=== PATIENT | male | born 1935 | race Caucasian/White ===

== ENCOUNTER 2018-10-27 19:47 | Inpatient (IN) | payer OTHER, MEDICARE ==
[2018-10-27] MEDS ORDERED: NORMAL SALINE 1000 ML 1,000 ML IV ONE (20:29)
--- NOTE | 2018-10-27 20:33 | ER Document Report ---
ED General - General Chief Complaint: Altered Mental Status Stated Complaint: CONFUSED Time Seen by Provider: 10/27/18 20:20 Notes: Patient is an 83-year-old male that comes emergency department with chief complaint of confusion and combativeness. He comes from an assisted living home in [place], he comes by EMS. Patient is unable to tell me any history, he is confused his location and cannot answer any questions appropriately. He can follow directions however. The form he comes with shows that he has a history of dementia, depression/anxiety, CAD, hypertension, and type 2 diabetes. He is listed to be on rosuvastatin, metoprolol, losartan, aspirin. There are no advanced directive forms with him. TRAVEL OUTSIDE OF THE [place] IN LAST 30 DAYS: No - Related Data Allergies/Adverse Reactions: No Known Allergies Allergy (Unverified 10/27/18 23:23) Past Medical History - General Information source: Patient, Transfer Record, Emergency Med Personnel - Social History Smoking Status: Unknown if Ever Smoked Frequency of alcohol use: None Drug Abuse: None Lives with: Family Family History: Reviewed & Not Pertinent - Medical History Medical History: Negative - Past Medical History Cardiac Medical History: Reports: Hx Coronary Artery Disease, Hx Hypercholesterolemia, Hx Hypertension Neurological Medical History: Reports: Hx Cerebrovascular Accident Past Surgical History: Reports: Hx Coronary Artery Bypass Graft Review of Systems - Review of Systems Constitutional: See HPI EENT: No symptoms reported Cardiovascular: No symptoms reported Respiratory: No symptoms reported Gastrointestinal: No symptoms reported Genitourinary: No symptoms reported Male Genitourinary: No symptoms reported Musculoskeletal: No symptoms reported Skin: No symptoms reported Hematologic/Lymphatic: No symptoms reported Neurological/Psychological: See HPI Physical Exam - Vital signs Vitals: Pulse Ox 95 10/27/18 20:03 - Notes Notes: GENERAL: Alert, interacts well. No acute distress. HEAD: Normocephalic, atraumatic. EYES: Pupils equal, round, and reactive to light. Extraocular movements intact. ENT: Oral mucosa moist, tongue midline. Oropharynx unremarkable. Airway patent. NECK: Full range of motion. Supple. Trachea midline. LUNGS: Mildly decreased bilaterally, otherwise unremarkable. No respiratory d istress. HEART: Regular rate and rhythm. No murmur ABDOMEN: Soft, non-tender. Non-distended. Bowel sounds present in all 4 quadrants. GENITOURINARY: Deferred EXTREMITIES: Moves all 4 extremities spontaneously. No edema, normal radial and dorsalis pedis pulses bilaterally. No cyanosis. BACK: no cervical, thoracic, lumbar midline tenderness. No saddle anesthesia, normal distal neurovascular exam. Moves all extremities in full range of motion. NEUROLOGICAL: Cooperative but completely confused. Alert. Normal speech. Cranial nerves II through XII grossly intact. PSYCH: Normal affect, normal mood. SKIN: Warm, dry, normal turgor. No rashes or lesions noted. Course - Re-evaluation Re-evalutation: Patient is mildly hypotensive on initial evaluation, given small amount of IV fluids, work-up will be performed. Patient does not appear toxic. Otherwise his vital signs are unremarkable. Patient is confused but this is reportedly baseline. 10/27/18 21:15 Second EKG without significant change but still shows borderline ST elevation anteriorly and borderline depression laterally. 10/27/18 21:28 Patient has paperwork listing Nettie Limon as his sister and power of client services director with a cell phone contact number at [phone]. I called and was able to speak with her. I expressed concerns about EKG and possible ID, asked if emely lechuga is having an ID if patient would personally wish or if she would wish for patient to undergo an invasive procedure. She states that patient has had 2 CABG procedures in the past, she states that patient and she herself would not want him to undergo any invasive procedures. She states she would want it to be treated medically and to see what happens. She also states that she wishes for patient to be DO NOT RESUSCITATE, she states that she is in between a previous location in [place] in her current location and is unsure where his official paperwork is, however she states that in the event of him coding that she would not want him to have CPR, intubation (placed on a ventilator). She also asked that when we know patient's work-up and disposition that she be called back and informed. CAT scan of the head shows old CVA. Cbc shows leukocytosis without bandemia. Chemistry is unremarkable. Troponin is elevated at 0.428. Chest x-ray consistent with pneumonia. Blood cultures sent. Starting antibiotics. Re-evaluated patient, he is unchanged. Blood pressure has remained unremarkable. Discussed with Dr. Owens. Lovenox started due to elevated troponin. Discussed with Dr. Staton, patient accepted for admission. 10/28/18 05:00 Called and updated sister on patient's details/admission. - Vital Signs Vital signs: Temp Pulse Resp BP Pulse Ox 97.3 F 63 18 104/58 L 96 10/28/18 03:54 10/28/18 03:54 10/28/18 03:54 10/28/18 03:54 10/28/18 04:00 - Laboratory Result Diagrams: 10/27/18 21:11 10/27/18 21:11 Laboratory results interpreted by me: 10/27/18 10/27/18 21:11 21:11 WBC 13.4 H RBC 3.94 L Hgb 11.5 L Hct 34.1 L RDW 14.6 H Seg Neuts % (Manual) 88 H Lymphocytes % (Manual) 7 L Abs Neuts (Manual) 11.8 H Glucose 115 H Total Protein 6.1 L Albumin 2.9 L - EKG Interpretation by Me Additional EKG results interpreted by me: 10/27/18 20:55 EKG shows sinus rhythm at a rate of 78, multiple PVCs are present, in V5 and V6 borderline ST segment depressions anteriorly with borderline inverted T waves, widening and borderline elevation in anterior leads. No comparison EKG is present. Discussed with Dr. Owens, repeat EKG will be performed in 15 minutes. Discharge - Discharge Clinical Impression: NSTEMI (non-ST elevated myocardial infarction) Pneumonia Qualifiers: Pneumonia type: due to unspecified organism Laterality: bilateral Lung location: unspecified part of lung Qualified Code(s): J18.9 - Pneumonia, unspecified organism Dementia Qualifiers: Dementia type: unspecified type Dementia behavioral disturbance: with behavioral disturbance Qualified Code(s): F03.91 - Unspecified dementia with behavioral disturbance Condition: Fair Disposition: ADMITTED INPATIENT Admitting Provider: Brionna (Hospitalist) Unit Admitted: [facility]
[2018-10-27 21:25] LABS: HEMATOCRIT 34.1 % (37.9-51.0); HEMOGLOBIN 11.5 g/dL (13.5-17.0); MEAN CORPUSCULAR HGB CONC 33.6 g/dL (32.0-36.0); MEAN CORPUSCULAR VOLUME 86 fl (80-97); PLATELET COUNT 385 10^3/uL (150-450); RED BLOOD COUNT 3.94 10^6/uL (4.35-5.55); RED CELL DISTRIBUTION WIDTH 14.6 % (11.5-14.0); WHITE BLOOD COUNT 13.4 10^3/uL (4.0-10.5)
[2018-10-27 21:39] LABS: ABSOLUTE LYMPHOCYTES# (MANUAL) 0.9 10^3/uL (0.5-4.7); ABSOLUTE MONOCYTES # (MANUAL) 0.7 10^3/uL (0.1-1.4); BASOPHILS % (MANUAL) 0 % (0-2); EOSINOPHILS % (MANUAL) 0 % (0-6); LYMPHOCYTES % (MANUAL) 7 % (13-45); MONOCYTES % (MANUAL) 5 % (3-13); SEGMENTED NEUTROPHILS % (MAN) 88 % (42-78); TOTAL CELLS COUNTED 100
[2018-10-27 21:40] LABS: ANISOCYTOSIS SLIGHT; HYPOCHROMASIA SLIGHT; PLATELET COMMENT ADEQUATE; POIKILOCYTOSIS SLIGHT
[2018-10-27 21:42] LABS: ALANINE AMINOTRANSFERASE 28 U/L (21-72); ALBUMIN 2.9 g/dL (3.5-5.0); ALKALINE PHOSPHATASE 68 U/L (38-126); ANION GAP 9 (5-19); ASPARTATE AMINO TRANSFERASE 22 U/L (17-59); BILIRUBIN,DIRECT 0.3 mg/dL (0.0-0.4); BILIRUBIN,TOTAL 0.7 mg/dL (0.2-1.3); BLOOD UREA NITROGEN 19 mg/dL (7-20); CALCIUM 8.5 mg/dL (8.4-10.2); CARBON DIOXIDE 23 mmol/L (22-30); CHLORIDE 106 mmol/L (98-107); GLUCOSE 115 mg/dL (75-110); POTASSIUM 3.7 mmol/L (3.6-5.0); SODIUM 137.9 mmol/L (137-145); TOTAL PROTEIN 6.1 g/dL (6.3-8.2)
--- NOTE | 2018-10-27 22:09 | RADIOLOGY REPORT (SQ) ---
EXAM DESCRIPTION: RadLex: CT HEAD WITHOUT IV CONTRAST CLINICAL HISTORY: 83 years Male; confusion TECHNIQUE: Noncontrast CT head. All CT scans at this facility use dose modulation, iterative reconstruction, and/or weight based dosing when appropriate to reduce radiation dose to as low as reasonably achievable. COMPARISON: None. FINDINGS: Encephalomalacia in the left frontal lobes consistent with old infarct. There is mild diffuse atrophy. No acute hemorrhage or mass effect. No acute cortical edema. Ventricles and cisterns are preserved. Visualized portions of paranasal sinuses and mastoids are clear. Visualized portions of the calvarium are within normal limits. IMPRESSION: 1. No acute intracranial findings. 2. Old left frontal lobe infarct
--- NOTE | 2018-10-27 22:10 | RADIOLOGY REPORT (SQ) ---
EXAM DESCRIPTION: [facility]: XR CHEST 1 VIEW CLINICAL HISTORY: 83 years Male, hypotension COMPARISON: None. FINDINGS: Focal consolidation infiltrate in the inferior lateral right upper lobe Diffuse alveolar/interstitial infiltrate with peripheral consolidation in the lateral left upper lobe No pneumothorax or pleural effusion. Sternal wires are noted. No mediastinal widening or shift. Bony structures are unremarkable. IMPRESSION: 1. Bilateral upper lobe densities, suspicious for combination of acute infiltrates and chronic interstitial fibrosis. 2. Previous sternotomy.
[2018-10-27] MEDS ORDERED: NORMAL SALINE 500 ML IV ONE (22:13)
[2018-10-27] MEDS ORDERED: ASPIRIN 81 MG TABLET, CHEWABLE PO ONE (22:14)
[2018-10-27] MEDS ORDERED: ENOXAPARIN SODIUM INJ 100 MG/1 ML DISP.SYRIN SUBCUT SCH (22:15)
[2018-10-27] MEDS ORDERED: CEFTRIAXONE 1 GM/D5W RTU 1 GM/50 ML RTUPB IV ONE (22:24)
[2018-10-27] MEDS ORDERED: AZITHROMYCIN INJ 500 MG VIAL IV ONE (22:25)
[2018-10-27] MEDS ORDERED: ENOXAPARIN SODIUM INJ 100 MG/1 ML DISP.SYRIN SUBCUT ONE (22:30)
[2018-10-27] MEDS ORDERED: LEVOFLOXACIN 750 MG/D5W RTU 750 MG/150 ML RTUPB IV ONE (23:23)
--- NOTE | 2018-10-28 00:04 | EKG REPORT ---
SEVERITY:- ABNORMAL ECG - SINUS RHYTHM VENTRICULAR PREMATURE COMPLEX REPOL ABNRM SUGGESTS ISCHEMIA, ANT-LAT LEADS PROLONGED QT INTERVAL : Confirmed by: Whit Harvey 28-Oct-2018 00:04:23
--- NOTE | 2018-10-28 00:05 | EKG REPORT ---
SEVERITY:- ABNORMAL ECG - SINUS RHYTHM REPOL ABNRM SUGGESTS ISCHEMIA, ANT-LAT LEADS BORDERLINE PROLONGED QT INTERVAL : Confirmed by: Whit Harvey 28-Oct-2018 00:04:54
[2018-10-28] MEDS ORDERED: GUAIFENESIN SYRP 200 MG/10 ML UDC PO PRN (01:13)
--- NOTE | 2018-10-28 01:13 | PDOC H&P ---
History of Present Illness Admission Date/PCP: 10/27/2018 23:22 No PCP locally Patient complains of: Increased confusion and combativeness History of Present Illness: CONNER SMITH is a 83 year old male who presented to the emergency room via EMS from a local [place] [facility] due to increased confusion and combativeness. Patient has severe dementia and is unable to contribute any meaningful information to his history. EMS reports that the [place] [facility] [place] staff felt that the patient had a significant change from his baseline dementia with an increase in confusion and they also noted that he had become physically combative when they would try to assist him or redirect him. In the emergency room he was found to be mildly hypotensive and further evaluation revealed bilateral pneumonia with an interstitial infiltrate in the right upper lobe and an alveolar infiltrate in the left upper lobe which are presumed to be acute since no comparison films are available. His white blood count was noted to be 13,400. The patient was subsequently admitted to the hospital for further evaluation and treatment. Past Medical History Past Medical History: Past medical history, past surgical history, social history and family medical history are obtained from available records and are significantly limited in scope due to the patient's inability to provide reliable historical data secondary to his severe dementia. Cardiac Medical History: Reports: Coronary Artery Disease, Hyperlipidema, Hypertension Pulmonary Medical History: Denies: Asthma, Tuberculosis EENT Medical History: Reports: Eyes - Prescription lenses Denies: Ears - Hearing aids Neurological Medical History: Denies: Multiple Sclerosis, Seizures Endocrine Medical History: Reports: Diabetes Mellitus Type 2 Denies: Diabetes Mellitus Type 1, Hyperthyroidism, Hypothyroidism Renal/ Medical History: Denies: Chronic Kidney Disease, Nephrolithiasis Malignancy Medical History: Reports: None GI Medical History: Denies: Cirrhosis, Hepatitis Musculoskeltal Medical History: Denies: Arthritis, Gout Skin Medical History: Denies: Eczema, Psoriasis Psychiatric Medical History: Reports: Dementia, Depression, General Anxiety Disorder Denies: Alcohol Dependency, Substance Abuse, Tobacco Dependency Traumatic Medical History: Reports: None Hematology: Denies: Anemia, Bleeding Tendencies Infectious Medical History: Reports: None Past Surgical History Past Surgical History: Past medical history, past surgical history, social history and family medical history are obtained from available records and are significantly limited in scope due to the patient's inability to provide reliable historical data secondary to his severe dementia. Past Surgical History: Reports: Cardiac Catheterization, Coronary Artery Bypass Graft - 2 separate times Social History Information Source: Relative Lives with: Senior Living Smoking Status: Never Smoker Frequency of Alcohol Use: None Hx Recreational Drug Use: No Drugs: None Hx Prescription Drug Abuse: No Past Social History Note: Past medical history, past surgical history, social history and family medical history are obtained from available records and are significantly limited in scope due to the patient's inability to provide reliable historical data secondary to his severe dementia. - Advance Directive Resuscitation Status: Do Not Resuscitate - DO NOT INTUBATE Surrogate healthcare decision maker:: Nettie Limon the patient's sister Family History Family History: CAD Family History: Past medical history, past surgical history, social history and family medical history are obtained from available records and are significantly limited in scope due to the patient's inability to provide reliable historical data secondary to his severe dementia. Parental Family History Reviewed: Yes Children Family History Reviewed: No Sibling(s) Family History Reviewed.: Yes Medication/Allergy Allergies/Adverse Reactions: No Known Allergies Allergy (Unverified 10/27/18 23:23) Review of Systems ROS unobtainable: Due to mental status - Severe dementia Physical Exam Vital Signs: Temp Pulse Resp BP Pulse Ox 20 105/60 97 10/27/18 23:00 10/27/18 21:01 10/27/18 23:00 Intake & Output 10/25/18 10/26/18 10/27/18 23:59 23:59 23:59 Weight 90.3 kg General appearance: PRESENT: no acute distress, cooperative, other - Pleasant and affable but confused Head exam: PRESENT: atraumatic, normocephalic Eye exam: ABSENT: conjunctival injection, scleral icterus Ear exam: PRESENT: normal external ear exam. ABSENT: bleeding, drainage Mouth exam: PRESENT: dry mucosa, neck supple Neck exam: ABSENT: JVD, thyromegaly, tracheal deviation Respiratory exam: PRESENT: rales - Few coarse rales are present in the left anterior axillary region on auscultation., rhonchi - There are a few scattered coarse rhonchi present in the anterior left upper lung area on auscultation., symmetrical, unlabored Cardiovascular exam: PRESENT: RRR. ABSENT: clicks, gallop, rubs Pulses: PRESENT: normal radial pulses, normal dorsalis pedis pul Vascular exam: PRESENT: normal capillary refill. ABSENT: pallor GI/Abdominal exam: PRESENT: normal bowel sounds, soft Rectal exam: PRESENT: deferred Extremities exam: ABSENT: joint swelling, pedal edema Musculoskeletal exam: ABSENT: deformity, dislocation Neurological exam: PRESENT: alert, awake, CN II-XII grossly intact. ABSENT: oriented to person, oriented to place, oriented to time, oriented to situation Psychiatric exam: PRESENT: normal mood, other - Calm and socially affable but confused Skin exam: PRESENT: dry, intact, warm. ABSENT: jaundice, rash, urticaria Results Laboratory Results: 10/27/18 21:11 10/27/18 21:11 10/27/18 10/27/18 21:11 21:11 WBC 13.4 H RBC 3.94 L Hgb 11.5 L Hct 34.1 L MCV 86 MCH 29.0 MCHC 33.6 RDW 14.6 H Plt Count 385 Seg Neutrophils % Not Reportable Lymphocytes % Not Reportable Monocytes % Not Reportable Eosinophils % Not Reportable Basophils % Not Reportable Absolute Neutrophils Not Reportable Absolute Lymphocytes Not Reportable Absolute Monocytes Not Reportable Absolute Eosinophils Not Reportable Absolute Basophils Not Reportable Sodium 137.9 Potassium 3.7 Chloride 106 Carbon Dioxide 23 Anion Gap 9 BUN 19 Creatinine 0.97 Est GFR ( Amer) > 60 Est GFR (Non-Af Amer) > 60 Glucose 115 H Calcium 8.5 Total Bilirubin 0.7 AST 22 ALT 28 Alkaline Phosphatase 68 Total Protein 6.1 L Albumin 2.9 L 10/27/18 21:11 Troponin I 0.428 EKG Comments: I have interpreted the patient's EKG personally with the following findings: Normal sinus rhythm at 78 bpm, occasional premature atrial and ventricular beats, nonspecific interventricular conduction delay, left ventricular hypertrophy with strain/repolarization abnormality in lateral leads, borderline prolonged QT interval. Impressions: Chest X-Ray 10/27/18 20:26 IMPRESSION: 1. Bilateral upper lobe densities, suspicious for combination of acute infiltrates and chronic interstitial fibrosis. 2. Previous sternotomy. Head CT 10/27/18 20:26 IMPRESSION: 1. No acute intracranial findings. 2. Old left frontal lobe infarct Status: Image reviewed by me - I have personally reviewed the patient's chest x- ray with the following findings: Right upper lung field shows interstitial edema/fibrosis, left upper lung field shows airspace disease as well as interstitial edema/fibrosis, evidence of coronary artery bypass graft surgery w ith sternal wire sutures noted, moderate cardiomegaly is present. Assessment and Plan - Diagnosis (1) Bilateral upper lobe community acquired pneumonia Is this a current diagnosis for this admission?: Yes Plan: Patient will be treated with Rocephin and azithromycin for his bilateral pneumonia. He will followed with daily CBC, metabolic profile and magnesium levels as part of his disease in therapeutic assessments. (2) Coronary artery disease Qualifiers: Coronary Disease-Associated Artery/Lesion type: [place] artery [place] vs. t ransplanted heart: [place] heart Associated angina: without angina Qualified Code(s): I25.10 - Atherosclerotic heart disease of [place] coronary artery without angina pectoris Is this a current diagnosis for this admission?: Yes Plan: Patient be maintained on his current cardiac medications and will be observed for any changes to his status. A lipid profile will be obtained to assess the efficacy of his current statin therapy. (3) Hypertension Qualifiers: Hypertension type: essential hypertension Qualified Code(s): I10 - Essential (primary) hypertension Is this a current diagnosis for this admission?: Yes Plan: Patient will be continued on his current antihypertensive medications his blood pressure will be followed closely through his hospital course with adjustments made his therapeutic plan only as medically necessary. (4) Diabetes mellitus type 2 in nonobese Is this a current diagnosis for this admission?: Yes Plan: Hemoglobin A1c will be obtained to assess his current therapy. Additionally he will be treated with a diabetic diet and before meals and at bedtime Accu-Cheks with sliding scale insulin to control hyperglycemia. He will also have a hypoglycemic protocol in place. (5) Dementia Qualifiers: Dementia type: unspecified type Dementia behavioral disturbance: with behavioral disturbance Qualified Code(s): F03.91 - Unspecified dementia with behavioral disturbance Is this a current diagnosis for this admission?: Yes Plan: This is the primary complaint for the patient's being sent to the hospital. He showed no evidence of combativeness during my evaluation. He will be observed for any combativeness or behavioral disturbance and treated appropriately if that were to occur. Patient is noted to be DNR/DNI and only necessary medical therapy is desired by his surrogate medical decision-maker. - Time Time Spent with patient: Less than 15 minutes Medications reviewed and adjusted accordingly: Yes Anticipated discharge: SNF - Inpatient Certification Based on my medical assessment, after consideration of the patient's comorbidities, presenting symptoms, or acuity I expect that the services needed warrant INPATIENT care.: Yes I certify that my determination is in accordance with my understanding of Medicare's requirements for reasonable and necessary INPATIENT services [42 CFR 412.3e].: Yes Medical Necessity: Significant Comorbidiites Make Outpatient Treatment Too Risky, Need Close Monitoring Due to Risk of Patient Decompensation, Need for Nebulizer Therapy and Monitoring of Response, Need for IV Antibiotics, Risk of Complication if Not Cared For in Hospital
[2018-10-28] MEDS ORDERED: GLUCAGON,HUMAN RECOMB 1 MG INJ IM PRN (01:22)
[2018-10-28] MEDS ORDERED: DEXTROSE 50%-WATER 25 GM/50 ML DISP.SYRIN IV PRN ×2 (01:22)
[2018-10-28] MEDS ORDERED: DEXTROSE 40% GEL 15 GM TUBE PO PRN ×2 (01:22)
[2018-10-28] MEDS ORDERED: ACETAMINOPHEN 325 MG TABLET PO PRN (01:23)
[2018-10-28] MEDS ORDERED: LEVALBUTEROL HCL NEB 0.63 MG/3 ML AMPUL NEB PRN (01:23)
[2018-10-28] MEDS ORDERED: CHLORPROMAZINE HCL INJ 25 MG/1 ML AMPULE IV PRN (01:23)
[2018-10-28 02:24] LABS: FREE T3 3.4 pg/mL (2.77-5.27); FREE T4 (FREE THYROXINE) 1.76 ng/dL (0.78-2.19)
[2018-10-28 04:23] LABS: CREATINE KINASE MB 1.51 ng/mL (<4.55)
[2018-10-28 04:28] LABS: TROPONIN I 0.421 ng/mL
[2018-10-28] MEDS: HEPARIN SOD (PORCINE) 5,000 UNIT/ML 1 ML SYRINGE SUBCUT SCH ×3 (05:47→22:46)
[2018-10-28] MEDS ORDERED: ACETYLCYSTEINE 20% SOLN 800 MG/4 ML VIAL.NEB NEB SCH (08:00)
--- NOTE | 2018-10-28 09:07 | PDOC PROGRESS REPORT ---
Subjective Progress Note for:: 10/28/18 Subjective:: 83 year old male who presented to the emergency room via EMS from a local snf due to increased confusion and combativeness. Patient has severe dementia and is unable to contribute any meaningful information to his history. EMS reports that the snf staff felt that the patient had a significant change from his baseline dementia with an increase in confusion and they also noted that he had become physically combative when they would try to assist him or redirect him. In the emergency room he was found to be mildly hypotensive and further evaluation revealed bilateral pneumonia with an interstitial infiltrate in the right upper lobe and an alveolar infiltrate in the left upper lobe which are presumed to be acute since no comparison films are available. His white blood count was noted to be 13,400. The patient was subsequently admitted to the hospital for further evaluation and treatment. 10/28/[id number]-aeiz-old male admitted for shortness of breath found to have bilateral pneumonia. He is on one-to-one observation to prevent falls. Last night he was confused and combative as per the hospitalist. This morning is more comfortable communicating well not in distress. Today's labs are pending. Afebrile. No acute events after the admission. Reason For Visit: PNEUMONIA Physical Exam Vital Signs: Temp Pulse Resp BP Pulse Ox 97.3 F 77 18 104/58 L 96 10/28/18 03:54 10/28/18 07:00 10/28/18 03:54 10/28/18 03:54 10/28/18 04:00 Pulse Oximeter Continuous Start: 10/28/18 01:14 Freq: RTQ4 Status: Active Protocol: Document 10/28/18 04:00 LRO (Rec: 10/28/18 04:50 LRO [email or web address]) Pulse Oximetry Assessment Oxygen Saturation (92-100) 96 Oxygen Flow Rate (L/min) 2 Oxygen Delivery Method Nasal Cannula Fraction of Inspired Oxygen (FIO2) 28 Equipment Usage Initial Set Up Continuous Pulse Oximeter 24 Hour Charge Charge Now Continuous SpO2 Machine # 00 Intake & Output 10/27/18 10/28/18 10/29/18 06:59 06:59 06:59 Intake Total 900 Balance 900 Weight 80.5 kg General appearance: PRESENT: no acute distress, well-developed Head exam: PRESENT: atraumatic Eye exam: PRESENT: PERRLA Mouth exam: PRESENT: moist, tongue midline Teeth exam: PRESENT: poor dentation Neck exam: ABSENT: carotid bruit, JVD, lymphadenopathy, thyromegaly Respiratory exam: PRESENT: decreased breath sounds, wheezes Cardiovascular exam: PRESENT: RRR. ABSENT: diastolic murmur, rubs, systolic murmur GI/Abdominal exam: PRESENT: normal bowel sounds, soft. ABSENT: distended, guarding, mass, organolmegaly, rebound, tenderness Rectal exam: PRESENT: deferred Extremities exam: PRESENT: full ROM. ABSENT: calf tenderness, clubbing, pedal edema Neurological exam: PRESENT: alert, awake, oriented to person, oriented to place, oriented to time, oriented to situation, CN II-XII grossly intact. ABSENT: motor sensory deficit Psychiatric exam: PRESENT: appropriate affect, normal mood. ABSENT: homicidal ideation, suicidal ideation Results Laboratory Results: 10/27/18 21:11 10/27/18 21:11 10/27/18 10/27/18 10/27/18 21:11 21:11 21:11 WBC 13.4 H RBC 3.94 L Hgb 11.5 L Hct 34.1 L MCV 86 MCH 29.0 MCHC 33.6 RDW 14.6 H Plt Count 385 Seg Neutrophils % Not Reportable Lymphocytes % Not Reportable Monocytes % Not Reportable Eosinophils % Not Reportable Basophils % Not Reportable Absolute Neutrophils Not Reportable Absolute Lymphocytes Not Reportable Absolute Monocytes Not Reportable Absolute Eosinophils Not Reportable Absolute Basophils Not Reportable Sodium 137.9 Potassium 3.7 Chloride 106 Carbon Dioxide 23 Anion Gap 9 BUN 19 Creatinine 0.97 Est GFR ( Amer) > 60 Est GFR (Non-Af Amer) > 60 Glucose 115 H Calcium 8.5 Total Bilirubin 0.7 AST 22 ALT 28 Alkaline Phosphatase 68 Total Protein 6.1 L Albumin 2.9 L Free T4 1.76 Free T3 pg/mL 3.40 10/27/18 10/28/18 10/28/18 21:11 03:17 03:17 Creatine Kinase 46 L CK-MB (CK-2) 1.51 Troponin I 0.428 0.421 Impressions: Chest X-Ray 10/27/18 20:26 IMPRESSION: 1. Bilateral upper lobe densities, suspicious for combination of acute infiltrates and chronic interstitial fibrosis. 2. Previous sternotomy. Head CT 10/27/18 20:26 IMPRESSION: 1. No acute intracranial findings. 2. Old left frontal lobe infarct Assessment and Plan - Diagnosis (1) Bilateral upper lobe community acquired pneumonia Is this a current diagnosis for this admission?: Yes Plan: Patient will be treated with Rocephin and azithromycin for his bilateral pneumonia. He will followed with daily CBC, metabolic profile and magnesium levels as part of his disease in therapeutic assessments. 10/28/[id number]-yelm-old male admitted with bilateral pneumonia. Presently on levo floxacillin and Zithromax. Cultures are pending. Receiving oxygen supplementations on nebulizer treatments. To do the CT of the chest to get further information about the pneumonia. Likely gram-positive organisms responsible for pneumonia. (2) Coronary artery disease Qualifiers: Coronary Disease-Associated Artery/Lesion type: [place] artery [place] vs. transplanted heart: [place] heart Associated angina: without angina Qualified Code(s): I25.10 - Atherosclerotic heart disease of [place] coronary artery without angina pectoris Is this a current diagnosis for this admission?: Yes Plan: Patient be maintained on his current cardiac medications and will be observed for any changes to his status. A lipid profile will be obtained to assess the efficacy of his current statin therapy. 10/28/2018-patient has history of coronary artery disease plan is to continue his home medications. His troponin is 0.4 and plan to continue to trend his troponins. (3) Hypertension Qualifiers: Hypertension type: essential hypertension Qualified Code(s): I10 - Essential (primary) hypertension Is this a current diagnosis for this admission?: Yes Plan: Patient will be continued on his current antihypertensive medications his blood pressure will be followed closely through his hospital course with adjustments made his therapeutic plan only as medically necessary. 10/28/2018-patient has history of hypertension blood pressure today is 106/60 low normal. Plan is to continue his home medications and closely monitor his blood pressures. (4) Diabetes mellitus type 2 in nonobese Is this a current diagnosis for this admission?: Yes Plan: Hemoglobin A1c will be obtained to assess his current therapy. Additionally he will be treated with a diabetic diet and before meals and at bedtime Accu-Cheks with sliding scale insulin to control hyperglycemia. He will also have a hypoglycemic protocol in place. 10/28/2018-patient has history of type 2 diabetes mellitus on insulin sliding scale before meals and at bedtime. Latest blood sugar is 115. Hemoglobin A1c is pending. (5) Dementia Qualifiers: Dementia type: unspecified type Dementia behavioral disturbance: with behavioral disturbance Qualified Code(s): F03.91 - Unspecified dementia with behavioral disturbance Is this a current diagnosis for this admission?: Yes Plan: This is the primary complaint for the patient's being sent to the hospital. He showed no evidence of combativeness during my evaluation. He will be observed for any combativeness or behavioral disturbance and treated appropriately if that were to occur. Patient is noted to be DNR/DNI and only necessary medical therapy is desired by his surrogate medical decision-maker. 10/28/2018-patient has history of dementia at the time of admission is combative and agitated during my examination this morning patient is comfortably in the bed communicating well. - Time Time Spent with patient: 25-34 minutes Medications reviewed and adjusted accordingly: Yes Anticipated discharge: Home
[2018-10-28] MEDS ORDERED: ENOXAPARIN SODIUM INJ 100 MG/1 ML DISP.SYRIN SUBCUT SCH (10:00)
[2018-10-28] MEDS: INSULIN LISPRO 100 UNIT/ML 3 ML VIAL SUBCUT SCH ×3 (10:01→17:45)
[2018-10-28 10:03] LABS: CREATINE KINASE MB 1.28 ng/mL (<4.55)
[2018-10-28] MEDS: FAMOTIDINE 20 MG TABLET PO SCH ×2 (10:03→22:46)
[2018-10-28] MEDS: AZITHROMYCIN 250 MG TABLET PO SCH (10:03)
[2018-10-28 10:07] LABS: TROPONIN I 0.398 ng/mL
[2018-10-28 11:12] LABS: APPEARANCE,URINE CLOUDY; BILIRUBIN,URINE NEGATIVE (NEGATIVE); COLOR,URINE AMBER; GLUCOSE, URINE NEGATIVE (NEGATIVE); KETONES,URINE NEGATIVE (NEGATIVE); LEUKOCYTE ESTERASE,URINE NEGATIVE (NEGATIVE); NITRITE,URINE NEGATIVE (NEGATIVE); PROTEIN,URINE 30 mg/dL (NEGATIVE); TRIPLE PHOSPHATE CRYSTAL,URINE MODERATE /HPF; URINE SPECIFIC GRAVITY 1.026; UROBILINOGEN,URINE NEGATIVE mg/dL (<2.0)
--- NOTE | 2018-10-28 13:02 | RADIOLOGY REPORT (SQ) ---
EXAM DESCRIPTION: CT CHEST WITHOUT COMPLETED DATE/TIME: 10/28/2018 10:50 am REASON FOR STUDY: pneumonia COMPARISON: Chest x-ray dated 10/27/2018. TECHNIQUE: CT scan performed of the chest without intravenous contrast. Images reviewed with lung, soft tissue and bone windows. Reconstructed coronal and sagittal MPR images reviewed. All images st ored on PACS. All CT scanners at this facility use dose modulation, iterative reconstruction, and/or weight based d osing when appropriate to reduce radiation dose to as low as reasonably achievable (ALARA). [facility]: Dose Right [facility]: CareDose [facility]: Dose Right [facility]: Teradose 4D [facility]: Smart [employer] RADIATION DOSE: CT Rad equipment meets quality standard of care and radiation dose reduction techniq ues were employed. CTDIvol: 9.2 mGy. DLP: 373 mGy-cm. mGy. LIMITATIONS: No technical limitations. FINDINGS: LUNGS AND PLEURA: Extensive fibrotic changes involving the upper lobes and portions of the superior lower lobes. Relative sparing of the lung bases. Moderate bilateral pleural effusions. HILAR AND MEDIASTINAL STRUCTURES: No identified masses or abnormal nodes. No obvious aneurysm. HEART AND VASCULAR STRUCTURES: No aneurysm. No pericardial effusion. UPPER ABDOMEN: No significant findings. Limited exam. THYROID AND OTHER SOFT TISSUES: No masses. No adenopathy. BONES: No significant finding. HARDWARE: Sternotomy wires. OTHER: No other significant findings. IMPRESSION: EXTENSIVE FIBROTIC CHANGES AND PROBABLE SUPERIMPOSED PNEUMONIA. MODERATE BILATERAL PLEU RAL EFFUSIONS. TECHNICAL DOCUMENTATION: JOB ID: [id number] Quality ID # [id number]: Final reports with documentation of one or more dose reduction techniques (e.g., Au tomated exposure control, adjustment of the mA and/or kV according to patient size, use of iterative reconstruction technique) 2010 [employer]- All Rights Reserved Reading location - IP/workstation name: [email or web address]
[2018-10-28 15:30] LABS: CREATINE KINASE MB 1.44 ng/mL (<4.55); TROPONIN I 0.353 ng/mL
[2018-10-28] MEDS ORDERED: CEFTRIAXONE 1 GM/D5W RTU 1 GM/50 ML RTUPB IV SCH (22:00)
[2018-10-29] MEDS: INSULIN LISPRO 100 UNIT/ML 3 ML VIAL SUBCUT SCH ×5 (00:38→21:22)
[2018-10-29 05:26] LABS: ABSOLUTE BASOPHILS # (AUTO) 0.1 10^3/uL (0.0-0.2); ABSOLUTE EOSINOPHILS # (AUTO) 0.1 10^3/uL (0.0-0.6); ABSOLUTE LYMPHOCYTES (AUTO) 1.4 10^3/uL (0.5-4.7); ABSOLUTE MONOCYTES (AUTO) 0.6 10^3/uL (0.1-1.4); ABSOLUTE NEUT (AUTO) 5.9 10^3/uL (1.7-8.2); BASOPHILS % (AUTO) 1.1 % (0-2); EOSINOPHILS % (AUTO) 0.8 % (0-6); HEMATOCRIT 34.3 % (37.9-51.0); HEMOGLOBIN 11.7 g/dL (13.5-17.0); LYMPHOCYTES % (AUTO) 16.9 % (13-45); MEAN CORPUSCULAR HEMOGLOBIN 29.6 pg (27.0-33.4); MEAN CORPUSCULAR HGB CONC 34.2 g/dL (32.0-36.0); MEAN CORPUSCULAR VOLUME 87 fl (80-97); PLATELET COUNT 293 10^3/uL (150-450); RED BLOOD COUNT 3.96 10^6/uL (4.35-5.55); RED CELL DISTRIBUTION WIDTH 14.8 % (11.5-14.0); SEGMENTED NEUTROPHILS % (AUTO) 73.2 % (42-78); TOTAL CELLS COUNTED % (AUTO) 100 %; WHITE BLOOD COUNT 8.1 10^3/uL (4.0-10.5)
[2018-10-29 05:53] LABS: ALANINE AMINOTRANSFERASE 21 U/L (21-72); ALBUMIN 2.8 g/dL (3.5-5.0); ALKALINE PHOSPHATASE 66 U/L (38-126); ANION GAP 9 (5-19); ASPARTATE AMINO TRANSFERASE 18 U/L (17-59); BILIRUBIN,DIRECT 0.3 mg/dL (0.0-0.4); BILIRUBIN,TOTAL 0.7 mg/dL (0.2-1.3); BLOOD UREA NITROGEN 17 mg/dL (7-20); CALCIUM 8.5 mg/dL (8.4-10.2); CARBON DIOXIDE 22 mmol/L (22-30); CHLORIDE 107 mmol/L (98-107); CHOLESTEROL 153.06 mg/dL (0-200); GLUCOSE 115 mg/dL (75-110); SODIUM 138.2 mmol/L (137-145); TOTAL PROTEIN 5.9 g/dL (6.3-8.2); TRIGLYCERIDES 103 mg/dL (<150)
[2018-10-29] MEDS ORDERED: LEVALBUTEROL HCL NEB 0.63 MG/3 ML AMPUL NEB PRN (05:54)
[2018-10-29] MEDS ORDERED: BUMETANIDE INJ/PF 1 MG/4 ML SDV IV ONE (06:00)
[2018-10-29 06:04] LABS: DIRECT LDL 103 mg/dL (<100)
[2018-10-29] MEDS: HEPARIN SOD (PORCINE) 5,000 UNIT/ML 1 ML SYRINGE SUBCUT SCH ×3 (06:07→21:22)
--- NOTE | 2018-10-29 08:35 | PDOC PROGRESS REPORT ---
Subjective Progress Note for:: 10/29/18 Subjective:: 83 year old male who presented to the emergency room via EMS from a local senior living due to increased confusion and combativeness. Patient has severe dementia and is unable to contribute any meaningful information to his history. EMS reports that the senior living staff felt that the patient had a significant change from his baseline dementia with an increase in confusion and they also noted that he had become physically combative when they would try to assist him or redirect him. In the emergency room he was found to be mildly hypotensive and further evaluation revealed bilateral pneumonia with an interstitial infiltrate in the right upper lobe and an alveolar infiltrate in the left upper lobe which are presumed to be acute since no comparison films are available. His white blood count was noted to be 13,400. The patient was subsequently admitted to the hospital for further evaluation and treatment. 10/28/[id number]-ebvk-old male admitted for shortness of breath found to have bilateral pneumonia. He is on one-to-one observation to prevent falls. Last night he was confused and combative as per the hospitalist. This morning is more comfortable communicating well not in distress. Today's labs are pending. Afebrile. No acute events after the admission. 10/29/[id number]-jrzw-old male admitted with bilateral pneumonia. Most likely community-acquired pneumonia he has occasional confusional episodes because of advanced dementia no acute events in the last 24 hours. Afebrile. Reason For Visit: PNEUMONIA Physical Exam Vital Signs: Temp Pulse Resp BP Pulse Ox 97.4 F 74 12 108/76 93 10/29/18 04:24 10/29/18 07:53 10/29/18 07:53 10/29/18 05:30 10/29/18 07:53 Pulse Oximeter Continuous Start: 10/28/18 01:14 Freq: RTQ4 Status: Active Protocol: Document 10/29/18 07:53 [facility] (Rec: 10/29/18 07:54 [facility] [email or web address]) Pulse Oximetry Assessment Oxygen Saturation (92-100) 93 Oxygen Flow Rate (L/min) 5 Oxygen Delivery Method Nasal Cannula Equipment Usage Equipment in Use Continuous SpO2 Machine # 7 Intake & Output 10/28/18 10/29/18 10/30/18 06:59 06:59 06:59 Intake Total 900 982 Output Total 1075 Balance 900 -93 Weight 80.5 kg 79.1 kg General appearance: PRESENT: no acute distress Head exam: PRESENT: atraumatic Eye exam: PRESENT: PERRLA Ear exam: PRESENT: normal external ear exam Mouth exam: PRESENT: moist, tongue midline Teeth exam: PRESENT: poor dentation Neck exam: ABSENT: carotid bruit, JVD, lymphadenopathy, thyromegaly Respiratory exam: PRESENT: decreased breath sounds Cardiovascular exam: PRESENT: tachycardia GI/Abdominal exam: PRESENT: normal bowel sounds, soft. ABSENT: distended, guarding, mass, organolmegaly, rebound, tenderness Rectal exam: PRESENT: deferred Extremities exam: PRESENT: full ROM. ABSENT: calf tenderness, clubbing, pedal edema Neurological exam: PRESENT: alert, awake, oriented to person, oriented to place, oriented to time, oriented to situation, CN II-XII grossly intact. ABSENT: motor sensory deficit Psychiatric exam: PRESENT: appropriate affect, normal mood. ABSENT: homicidal ideation, suicidal ideation Results Laboratory Results: 10/29/18 04:29 10/29/18 04:29 10/28/18 10/29/18 10/29/18 10:30 04:29 04:29 WBC RBC Hgb Hct MCV MCH MCHC RDW Plt Count Seg Neutrophils % Lymphocytes % Monocytes % Eosinophils % Basophils % Absolute Neutrophils Absolute Lymphocytes Absolute Monocytes Absolute Eosinophils Absolute Basophils Sodium 138.2 Potassium 4.0 Chloride 107 Carbon Dioxide 22 Anion Gap 9 BUN 17 Creatinine 0.80 Est GFR ( Amer) > 60 Est GFR (Non-Af Amer) > 60 Glucose 115 H Calcium 8.5 Magnesium 2.0 Total Bilirubin 0.7 AST 18 ALT 21 Alkaline Phosphatase 66 Total Protein 5.9 L Albumin 2.8 L Triglycerides 103 Cholesterol 153.06 LDL Cholesterol Direct 103 H VLDL Cholesterol 21.0 HDL Cholesterol 35 L TSH 0.97 Urine Color CHANEL Urine Appearance CLOUDY Urine pH 5.0 Ur Specific [place] 1.026 Urine Protein 30 H Urine Glucose (UA) NEGATIVE Urine Ketones NEGATIVE Urine Blood NEGATIVE Urine Nitrite NEGATIVE Ur Leukocyte Esterase NEGATIVE Urine WBC (Auto) 2 Urine RBC (Auto) 2 10/29/18 04:29 WBC 8.1 RBC 3.96 L Hgb 11.7 L Hct 34.3 L MCV 87 MCH 29.6 MCHC 34.2 RDW 14.8 H Plt Count 293 Seg Neutrophils % 73.2 Lymphocytes % 16.9 Monocytes % 8.0 Eosinophils % 0.8 Basophils % 1.1 Absolute Neutrophils 5.9 Absolute Lymphocytes 1.4 Absolute Monocytes 0.6 Absolute Eosinophils 0.1 Absolute Basophils 0.1 Sodium Potassium Chloride Carbon Dioxide Anion Gap BUN Creatinine Est GFR ( Amer) Est GFR (Non-Af Amer) Glucose Calcium Magnesium Total Bilirubin AST ALT Alkaline Phosphatase Total Protein Albumin Triglycerides Cholesterol LDL Cholesterol Direct VLDL Cholesterol HDL Cholesterol TSH Urine Color Urine Appearance Urine pH Ur Specific [place] Urine Protein Urine Glucose (UA) Urine Ketones Urine Blood Urine Nitrite Ur Leukocyte Esterase Urine WBC (Auto) Urine RBC (Auto) 10/27/18 10/28/18 10/28/18 21:11 03:17 03:17 Creatine Kinase 46 L CK-MB (CK-2) 1.51 Troponin I 0.428 0.421 10/28/18 10/28/18 10/28/18 08:37 08:37 14:45 Creatine Kinase 40 L 49 L CK-MB (CK-2) 1.28 Troponin I 0.398 10/28/18 14:45 Creatine Kinase CK-MB (CK-2) 1.44 Troponin I 0.353 Impressions: Head CT 10/27/18 20:26 IMPRESSION: 1. No acute intracranial findings. 2. Old left frontal lobe infarct Chest CT 10/28/18 00:00 IMPRESSION: EXTENSIVE FIBROTIC CHANGES AND PROBABLE SUPERIMPOSED PNEUMONIA. MODERATE BILATERAL PLEURAL EFFUSIONS. Assessment and Plan - Diagnosis (1) Bilateral upper lobe community acquired pneumonia Is this a current diagnosis for this admission?: Yes Plan: Patient will be treated with Rocephin and azithromycin for his bilateral pneumonia. He will followed with daily CBC, metabolic profile and magnesium levels as part of his disease in therapeutic assessments. 10/28/[id number]-oooe-old male admitted with bilateral pneumonia. Presently on levo floxacillin and Zithromax. Cultures are pending. Receiving oxygen supplementations on nebulizer treatments. To do the CT of the chest to get further information about the pneumonia. Likely gram-positive organisms responsible for pneumonia. 10/29/[id number]-lbhn-old female admitted with a bilateral pneumonia presently on levo floxacillin and Zithromax. Cultures are still pending. Pulse oxes 95% on [address] chest shows fibrotic changes in both lung [place] with possi ble superimposed pneumonia. (2) Coronary artery disease Qualifiers: Coronary Disease-Associated Artery/Lesion type: [place] artery [place] vs. transplanted heart: [place] heart Associated angina: without angina Qualified Code(s): I25.10 - Atherosclerotic heart disease of [place] coronary artery without angina pectoris Is this a current diagnosis for this admission?: Yes Plan: Patient be maintained on his current cardiac medications and will be observed for any changes to his status. A lipid profile will be obtained to assess the efficacy of his current statin therapy. 10/28/2018-patient has history of coronary artery disease plan is to continue his home medications. His troponin is 0.4 and plan to continue to trend his troponins. 10/29/2018-patient has history of coronary artery disease no complaints of chest pain during the hospital stay. He troponins are slightly elevated may be secondary to myocardial ischemia due to oxygen demand and supply problem. (3) Hypertension Qualifiers: Hypertension type: essential hypertension Qualified Code(s): I10 - Essential (primary) hypertension Is this a current diagnosis for this admission?: Yes Plan: Patient will be continued on his current antihypertensive medications his blood pressure will be followed closely through his hospital course with adjustments made his therapeutic plan only as medically necessary. 10/28/2018-patient has history of hypertension blood pressure today is 106/60 low normal. Plan is to continue his home medications and closely monitor his blood pressures. 10/29/2018-patient blood pressure today is 108/76 stable. Plan is to continue the present management. (4) Diabetes mellitus type 2 in nonobese Is this a current diagnosis for this admission?: Yes Plan: Hemoglobin A1c will be obtained to assess his current therapy. Additionally he will be treated with a diabetic diet and before meals and at bedtime Accu-Cheks with sliding scale insulin to control hyperglycemia. He will also have a hypoglycemic protocol in place. 10/28/2018-patient has history of type 2 diabetes mellitus on insulin sliding scale before meals and at bedtime. Latest blood sugar is 115. Hemoglobin A1c is pending. 10/29/2018-patient has history of type 2 diabetes mellitus on insulin sliding scale latest blood sugar is 115 stable. Hemoglobin A1c 6.1. (5) Dementia Qualifiers: Dementia type: unspecified type Dementia behavioral disturbance: with behavioral disturbance Qualified Code(s): F03.91 - Unspecified dementia with behavioral disturbance Is this a current diagnosis for this admission?: Yes Plan: This is the primary complaint for the patient's being sent to the hospital. He showed no evidence of combativeness during my evaluation. He will be observed for any combativeness or behavioral disturbance and treated appropriately if that were to occur. Patient is noted to be DNR/DNI and only necessary medical therapy is desired by his surrogate medical decision-maker. 10/28/2018-patient has history of dementia at the time of admission is combative and agitated during my examination this morning patient is comfortably in the bed communicating well. - Time Time Spent with patient: 25-34 minutes Medications reviewed and adjusted accordingly: Yes Anticipated discharge: Home
--- NOTE | 2018-10-29 09:14 | RADIOLOGY REPORT (SQ) ---
EXAM DESCRIPTION: CHEST SINGLE VIEW COMPLETED DATE/TIME: 10/29/2018 7:55 am REASON FOR STUDY: cough dyspnea COMPARISON: CT chest 10/28/2018 AP chest 10/27/2018 EXAM PARAMETERS: NUMBER OF VIEWS: One view. TECHNIQUE: Single frontal radiographic view of the chest acquired. RADIATION DOSE: NA LIMITATIONS: None. FINDINGS: LUNGS AND PLEURA: End-stage appearance of pulmonary fibrosis and consolidation in both upp er lobes. Trace bilateral pleural effusions are present. No pulmonary vascular congestion. No perihilar pulmo nary edema. MEDIASTINUM AND HILAR STRUCTURES: No masses. Contour normal. HEART AND VASCULAR STRUCTURES: No cardiomegaly. Old sternotomy for CABG BONES: No acute findings. HARDWARE: None in the chest. OTHER: No other significant finding. IMPRESSION: End-stage appearance of volume loss and dense pulmonary fibrosis in both upper lobes. Trace bilateral pleural effusions. No gross alveolar edema. Findings discussed with Dr. Torres TECHNICAL DOCUMENTATION: JOB ID: [id number] [employer]- All Rights Reserved Reading location - IP/workstation name: [email or web address]
[2018-10-29] MEDS: AZITHROMYCIN 250 MG TABLET PO SCH (09:43)
[2018-10-29] MEDS: METOPROLOL TARTRATE 50 MG TABLET PO SCH (09:43)
[2018-10-29] MEDS: SERTRALINE HCL 50 MG TABLET PO SCH (09:43)
[2018-10-29] MEDS: LOSARTAN POTASSIUM 25 MG TABLET PO SCH (09:43)
[2018-10-29] MEDS: FAMOTIDINE 20 MG TABLET PO SCH ×2 (09:43→21:22)
[2018-10-29] MEDS: ASPIRIN 81 MG TABLET, ENT COATED PO SCH (09:43)
[2018-10-29] MEDS: FOLIC ACID 1 MG TABLET PO SCH (09:44)
[2018-10-29] MEDS ORDERED: (PENDING PHARMACY ID) (Rosuvastatin Calcium [Crestor 20 Mg Tablet] 20 MG) PO SCH (10:00)
[2018-10-29] MEDS: ATORVASTATIN CALCIUM 40 MG TABLET PO SCH (21:22)
[2018-10-29] MEDS: CEFTRIAXONE SODIUM 1,000 MG in DEXTROSE 5%-WATER 50 ML IV SCH (22:00)
[2018-10-30] MEDS: HEPARIN SOD (PORCINE) 5,000 UNIT/ML 1 ML SYRINGE SUBCUT SCH ×3 (05:26→21:27)
[2018-10-30 05:37] LABS: HEMOGLOBIN 11.5 g/dL (13.5-17.0); MEAN CORPUSCULAR HEMOGLOBIN 29.3 pg (27.0-33.4); MEAN CORPUSCULAR HGB CONC 33.8 g/dL (32.0-36.0); MEAN CORPUSCULAR VOLUME 87 fl (80-97); PLATELET COUNT 269 10^3/uL (150-450); RED BLOOD COUNT 3.92 10^6/uL (4.35-5.55); RED CELL DISTRIBUTION WIDTH 14.9 % (11.5-14.0); WHITE BLOOD COUNT 6.3 10^3/uL (4.0-10.5)
[2018-10-30 06:03] LABS: ALANINE AMINOTRANSFERASE 21 U/L (21-72); ALBUMIN 2.6 g/dL (3.5-5.0); ALKALINE PHOSPHATASE 62 U/L (38-126); ANION GAP 8 (5-19); ASPARTATE AMINO TRANSFERASE 17 U/L (17-59); BILIRUBIN,DIRECT 0.4 mg/dL (0.0-0.4); BILIRUBIN,TOTAL 0.8 mg/dL (0.2-1.3); BLOOD UREA NITROGEN 16 mg/dL (7-20); CALCIUM 8.2 mg/dL (8.4-10.2); CARBON DIOXIDE 25 mmol/L (22-30); CHLORIDE 105 mmol/L (98-107); GLUCOSE 101 mg/dL (75-110); POTASSIUM 3.6 mmol/L (3.6-5.0); SODIUM 137.7 mmol/L (137-145); TOTAL PROTEIN 5.6 g/dL (6.3-8.2)
[2018-10-30] MEDS: INSULIN LISPRO 100 UNIT/ML 3 ML VIAL SUBCUT SCH ×4 (09:02→21:28)
[2018-10-30] MEDS: ASPIRIN 81 MG TABLET, ENT COATED PO SCH (09:37)
[2018-10-30] MEDS: METOPROLOL TARTRATE 50 MG TABLET PO SCH (09:37)
[2018-10-30] MEDS: FOLIC ACID 1 MG TABLET PO SCH (09:38)
[2018-10-30] MEDS: SERTRALINE HCL 50 MG TABLET PO SCH (09:38)
[2018-10-30] MEDS: AZITHROMYCIN 250 MG TABLET PO SCH (09:38)
[2018-10-30] MEDS: FAMOTIDINE 20 MG TABLET PO SCH ×2 (09:38→21:27)
[2018-10-30] MEDS: LOSARTAN POTASSIUM 25 MG TABLET PO SCH (09:38)
--- NOTE | 2018-10-30 14:25 | PDOC PROGRESS REPORT ---
Subjective Progress Note for:: 10/30/18 Subjective:: 10/30: Assumed care today. Reviewed chart and course. This is an 83-year-old male who was brought in due to increasing confusion. He was admitted for acute encephalopathy and was found to have bilateral pneumonia. Patient's encephalopathy has improved. RN reported occasional sundowning episodes but he has been more coherent and appears to be at his baseline menta tion in the past 24 hours. He continued to improve. This morning, he says his shortness of breath has significantly improved. He appears comfortable and is saturating well on room air. He is oriented to person and place. Anticipating clearing patient for discharge to SNF/rehab in the next 24 hours. Reason For Visit: PNEUMONIA Physical Exam Vital Signs: Temp Pulse Resp BP Pulse Ox 97.4 F 71 17 93/56 L 93 10/30/18 11:03 10/30/18 11:03 10/30/18 11:03 10/30/18 11:03 10/30/18 12:00 Pulse Oximeter Continuous Start: 10/28/18 01:14 Freq: RTQ4 Status: Active Protocol: Document 10/30/18 12:00 [facility] (Rec: 10/30/18 12:27 [facility] [email or web address]) Pulse Oximetry Assessment Oxygen Saturation (92-100) 93 Oxygen Flow Rate (L/min) 5 Oxygen Delivery Method Nasal Cannula Equipment Usage Equipment in Use Continuous SpO2 Machine # 7 Intake & Output 10/29/18 10/30/18 10/31/18 06:59 06:59 06:59 Intake Total 982 100 Output Total 1075 450 Balance -93 -350 Weight 174 lb 6.17 oz 173 lb 15.115 oz General appearance: PRESENT: no acute distress, well-developed, well-nourished Head exam: PRESENT: atraumatic, normocephalic Eye exam: PRESENT: conjunctiva pink, EOMI, PERRLA. ABSENT: scleral icterus Ear exam: PRESENT: normal external ear exam Mouth exam: PRESENT: moist, tongue midline Neck exam: ABSENT: carotid bruit, JVD, lymphadenopathy, thyromegaly Respiratory exam: PRESENT: rhonchi. ABSENT: rales, wheezes Cardiovascular exam: PRESENT: RRR. ABSENT: diastolic murmur, rubs, systolic murmur Pulses: PRESENT: normal dorsalis pedis pul GI/Abdominal exam: PRESENT: normal bowel sounds, soft. ABSENT: distended, guarding, mass, organolmegaly, rebound, tenderness Rectal exam: PRESENT: deferred Neurological exam: PRESENT: alert, awake, oriented to person, oriented to place, CN II-XII grossly intact. ABSENT: motor sensory deficit Results Laboratory Results: 10/30/18 04:38 10/30/18 04:38 10/30/18 10/30/18 10/30/18 04:38 04:38 04:38 WBC 6.3 RBC 3.92 L Hgb 11.5 L Hct 34.0 L MCV 87 MCH 29.3 MCHC 33.8 RDW 14.9 H Plt Count 269 Sodium 137.7 Potassium 3.6 Chloride 105 Carbon Dioxide 25 Anion Gap 8 BUN 16 Creatinine 0.76 Est GFR ( Amer) > 60 Est GFR (Non-Af Amer) > 60 Glucose 101 Calcium 8.2 L Magnesium 2.0 Total Bilirubin 0.8 AST 17 ALT 21 Alkaline Phosphatase 62 Total Protein 5.6 L Albumin 2.6 L 10/27/18 10/28/18 10/28/18 21:11 03:17 03:17 Creatine Kinase 46 L CK-MB (CK-2) 1.51 Troponin I 0.428 0.421 10/28/18 10/28/18 10/28/18 08:37 08:37 14:45 Creatine Kinase 40 L 49 L CK-MB (CK-2) 1.28 Troponin I 0.398 10/28/18 14:45 Creatine Kinase CK-MB (CK-2) 1.44 Troponin I 0.353 Impressions: Head CT 10/27/18 20:26 IMPRESSION: 1. No acute intracranial findings. 2. Old left frontal lobe infarct Chest CT 10/28/18 00:00 IMPRESSION: EXTENSIVE FIBROTIC CHANGES AND PROBABLE SUPERIMPOSED PNEUMONIA. MODERATE BILATERAL PLEURAL EFFUSIONS. Chest X-Ray 10/29/18 00:00 IMPRESSION: End-stage appearance of volume loss and dense pulmonary fibrosis in both upper lobes. Trace bilateral pleural effusions. No gross alveolar edema. Findings discussed with Dr. Torres Assessment and Plan - Diagnosis (1) Acute encephalopathy Is this a current diagnosis for this admission?: Yes Plan: He does have dementia. Acute encephalopathy was likely related to his pneumonia. This is now resolved and he is now at his baseline. (2) Bilateral upper lobe community acquired pneumonia Is this a current diagnosis for this admission?: Yes Plan: Improving. Continue Rocephin and azithromycin. (3) Coronary artery disease Qualifiers: Coronary Disease-Associated Artery/Lesion type: [place] artery [place] vs. transplanted heart: [place] heart Associated angina: without angina Qualified Code(s): I25.10 - Atherosclerotic heart disease of [place] coronary artery without angina pectoris Is this a current diagnosis for this admission?: Yes Plan: Stable. Continue aspirin and statin. (4) Dementia Qualifiers: Dementia type: unspecified type Dementia behavioral disturbance: with behavioral disturbance Qualified Code(s): F03.91 - Unspecified dementia with behavioral disturbance Is this a current diagnosis for this admission?: Yes Plan: Now at baseline. (5) Diabetes mellitus type 2 in nonobese Is this a current diagnosis for this admission?: Yes Plan: Controlled. (6) Hypertension Qualifiers: Hypertension type: essential hypertension Qualified Code(s): I10 - Essential (primary) hypertension Is this a current diagnosis for this admission?: Yes Plan: Continue metoprolol and losartan. - Time Time Spent with patient: 25-34 minutes
[2018-10-30] MEDS ORDERED: TUBERCULIN,PURIF.PROT.DERIV. 5 TU/0.1 ML TEST 1 ML VIAL ID ONE ×2 (16:00→22:00)
[2018-10-30] MEDS: CEFTRIAXONE SODIUM 1,000 MG in DEXTROSE 5%-WATER 50 ML IV SCH (21:27)
[2018-10-30] MEDS: ATORVASTATIN CALCIUM 40 MG TABLET PO SCH (21:27)
[2018-10-31] MEDS: HEPARIN SOD (PORCINE) 5,000 UNIT/ML 1 ML SYRINGE SUBCUT SCH ×3 (05:47→23:11)
[2018-10-31 06:40] LABS: HEMATOCRIT 37.3 % (37.9-51.0); HEMOGLOBIN 12.5 g/dL (13.5-17.0); MEAN CORPUSCULAR HEMOGLOBIN 28.9 pg (27.0-33.4); MEAN CORPUSCULAR HGB CONC 33.6 g/dL (32.0-36.0); MEAN CORPUSCULAR VOLUME 86 fl (80-97); PLATELET COUNT 341 10^3/uL (150-450); RED BLOOD COUNT 4.33 10^6/uL (4.35-5.55); WHITE BLOOD COUNT 8.4 10^3/uL (4.0-10.5)
[2018-10-31 06:50] LABS: ANION GAP 9 (5-19); BLOOD UREA NITROGEN 21 mg/dL (7-20); CALCIUM 8.6 mg/dL (8.4-10.2); CARBON DIOXIDE 25 mmol/L (22-30); CHLORIDE 105 mmol/L (98-107); GLUCOSE 120 mg/dL (75-110); POTASSIUM 3.9 mmol/L (3.6-5.0); SODIUM 138.8 mmol/L (137-145)
[2018-10-31] MEDS: INSULIN LISPRO 100 UNIT/ML 3 ML VIAL SUBCUT SCH ×4 (08:18→23:12)
[2018-10-31] MEDS ORDERED: ERGOCALCIFEROL (VITAMIN D2) 50000 UNIT (1.25 MG) CAPSULE PO SCH (08:28)
[2018-10-31] MEDS: LOSARTAN POTASSIUM 25 MG TABLET PO SCH (10:34)
[2018-10-31] MEDS: AZITHROMYCIN 250 MG TABLET PO SCH (10:34)
[2018-10-31] MEDS: METOPROLOL TARTRATE 50 MG TABLET PO SCH (10:35)
[2018-10-31] MEDS: FAMOTIDINE 20 MG TABLET PO SCH ×2 (10:35→23:08)
[2018-10-31] MEDS: FOLIC ACID 1 MG TABLET PO SCH (10:35)
[2018-10-31] MEDS: ASPIRIN 81 MG TABLET, ENT COATED PO SCH (10:35)
[2018-10-31] MEDS: SERTRALINE HCL 50 MG TABLET PO SCH (10:35)
--- NOTE | 2018-10-31 12:57 | PDOC PROGRESS REPORT ---
Subjective Progress Note for:: 10/31/18 Subjective:: 10/30: Assumed care today. Reviewed chart and course. This is an 83-year-old male who was brought in due to increasing confusion. He was admitted for acute encephalopathy and was found to have bilateral pneumonia. Patient's encephalopathy has improved. RN reported occasional sundowning episodes but he has been more coherent and appears to be at his baseline menta tion in the past 24 hours. He continued to improve. This morning, he says his shortness of breath has significantly improved. He appears comfortable and is saturating well on room air. He is oriented to person and place. Anticipating clearing patient for discharge to SNF/rehab in the next 24 hours. 10/31: No acute event overnight. He continues to improve and he is at his baseline mentation. He denies any shortness of breath or chest pain. He saturating well on room air. Patient is medically cleared and fit to be discharged to [facility] however, accepting facilities are requiring a PPD testing which will require at least another 36 hours to be read. Reason For Visit: PNEUMONIA Physical Exam Vital Signs: Temp Pulse Resp BP Pulse Ox 97.9 F 69 17 114/71 93 10/31/18 07:13 10/31/18 07:13 10/31/18 07:13 10/31/18 07:13 10/31/18 07:13 Pulse Oximeter Continuous Start: 10/28/18 01:14 Freq: RTQ4 Status: Active Protocol: Document 10/31/18 04:45 [facility] (Rec: 10/31/18 04:46 [facility] [id number]) Pulse Oximetry Assessment Oxygen Saturation (92-100) 93 Oxygen Flow Rate (L/min) 3 Oxygen Delivery Method Nasal Cannula Fraction of Inspired Oxygen (FIO2) 32 Equipment Usage Equipment Standby Continuous SpO2 Machine # N7 Intake & Output 10/30/18 10/31/18 11/01/18 06:59 06:59 06:59 Intake Total 100 650 Output Total 450 802 Balance -350 -152 Weight 173 lb 15.115 oz 176 lb 2.389 oz General appearance: PRESENT: no acute distress, well-developed, well-nourished Head exam: PRESENT: atraumatic, normocephalic Eye exam: PRESENT: conjunctiva pink, EOMI, PERRLA. ABSENT: scleral icterus Ear exam: PRESENT: normal external ear exam Mouth exam: PRESENT: moist, tongue midline Neck exam: ABSENT: carotid bruit, JVD, lymphadenopathy, thyromegaly Respiratory exam: PRESENT: clear to auscultation rachna. ABSENT: rales, rhonchi, wheezes Cardiovascular exam: PRESENT: RRR. ABSENT: diastolic murmur, rubs, systolic murmur Pulses: PRESENT: normal dorsalis pedis pul GI/Abdominal exam: PRESENT: normal bowel sounds, soft. ABSENT: distended, guarding, mass, organolmegaly, rebound, tenderness Rectal exam: PRESENT: deferred Extremities exam: PRESENT: full ROM. ABSENT: calf tenderness, clubbing, pedal edema Neurological exam: PRESENT: alert, awake, oriented to person, oriented to place, oriented to time, oriented to situation, CN II-XII grossly intact. ABSENT: motor sensory deficit Results Laboratory Results: 10/31/18 06:25 10/31/18 06:25 10/31/18 10/31/18 06:25 06:25 WBC 8.4 RBC 4.33 L Hgb 12.5 L Hct 37.3 L MCV 86 MCH 28.9 MCHC 33.6 RDW 15.0 H Plt Count 341 Sodium 138.8 Potassium 3.9 Chloride 105 Carbon Dioxide 25 Anion Gap 9 BUN 21 H Creatinine 0.84 Est GFR ( Amer) > 60 Est GFR (Non-Af Amer) > 60 Glucose 120 H Calcium 8.6 10/27/18 10/28/18 10/28/18 21:11 03:17 03:17 Creatine Kinase 46 L CK-MB (CK-2) 1.51 Troponin I 0.428 0.421 10/28/18 10/28/18 10/28/18 08:37 08:37 14:45 Creatine Kinase 40 L 49 L CK-MB (CK-2) 1.28 Troponin I 0.398 10/28/18 14:45 Creatine Kinase CK-MB (CK-2) 1.44 Troponin I 0.353 Impressions: Head CT 10/27/18 20:26 IMPRESSION: 1. No acute intracranial findings. 2. Old left frontal lobe infarct Chest CT 10/28/18 00:00 IMPRESSION: EXTENSIVE FIBROTIC CHANGES AND PROBABLE SUPERIMPOSED PNEUMONIA. MODERATE BILATERAL PLEURAL EFFUSIONS. Chest X-Ray 10/29/18 00:00 IMPRESSION: End-stage appearance of volume loss and dense pulmonary fibrosis in both upper lobes. Trace bilateral pleural effusions. No gross alveolar edema. Findings discussed with Dr. Torres Assessment and Plan - Diagnosis (1) Acute encephalopathy Is this a current diagnosis for this admission?: Yes Plan: He does have dementia. Acute encephalopathy was likely related to his pneumonia. This is now resolved and he is now at his baseline. (2) Bilateral upper lobe community acquired pneumonia Is this a current diagnosis for this admission?: Yes Plan: Improving. Continue Rocephin and azithromycin. (3) Coronary artery disease Qualifiers: Coronary Disease-Associated Artery/Lesion type: [place] artery [place] vs. transplanted heart: [place] heart Associated angina: without angina Qualified Code(s): I25.10 - Atherosclerotic heart disease of [place] coronary artery without angina pectoris Is this a current diagnosis for this admission?: Yes Plan: Stable. Continue aspirin and statin. (4) Dementia Qualifiers: Dementia type: unspecified type Dementia behavioral disturbance: with behavioral disturbance Qualified Code(s): F03.91 - Unspecified dementia with behavioral disturbance Is this a current diagnosis for this admission?: Yes Plan: Now at baseline. (5) Diabetes mellitus type 2 in nonobese Is this a current diagnosis for this admission?: Yes Plan: Controlled. (6) Hypertension Qualifiers: Hypertension type: essential hypertension Qualified Code(s): I10 - Essential (primary) hypertension Is this a current diagnosis for this admission?: Yes Plan: Continue metoprolol and losartan. - Time Time Spent with patient: 25-34 minutes
[2018-10-31] MEDS: ATORVASTATIN CALCIUM 40 MG TABLET PO SCH (23:08)
[2018-10-31] MEDS: CEFTRIAXONE SODIUM 1,000 MG in DEXTROSE 5%-WATER 50 ML IV SCH (23:09)
[2018-11-01] MEDS: HEPARIN SOD (PORCINE) 5,000 UNIT/ML 1 ML SYRINGE SUBCUT SCH ×3 (06:00→22:10)
[2018-11-01] MEDS: INSULIN LISPRO 100 UNIT/ML 3 ML VIAL SUBCUT SCH ×4 (07:58→22:00)
[2018-11-01] MEDS: AZITHROMYCIN 250 MG TABLET PO SCH (10:50)
[2018-11-01] MEDS: METOPROLOL TARTRATE 50 MG TABLET PO SCH (10:50)
[2018-11-01] MEDS: FAMOTIDINE 20 MG TABLET PO SCH ×2 (10:50→22:09)
[2018-11-01] MEDS: FOLIC ACID 1 MG TABLET PO SCH (10:50)
[2018-11-01] MEDS: ASPIRIN 81 MG TABLET, ENT COATED PO SCH (10:50)
[2018-11-01] MEDS: LOSARTAN POTASSIUM 25 MG TABLET PO SCH (10:50)
[2018-11-01] MEDS: SERTRALINE HCL 50 MG TABLET PO SCH (10:50)
[2018-11-01] MEDS: IPRATROPIUM/ALBUTEROL 0.5-2.5 MG/3 ML AMPUL NEB SCH ×2 (13:55→20:08)
--- NOTE | 2018-11-01 15:10 | PDOC PROGRESS REPORT ---
Subjective Progress Note for:: 11/01/18 Subjective:: 10/30: Assumed care today. Reviewed chart and course. This is an 83-year-old male who was brought in due to increasing confusion. He was admitted for acute encephalopathy and was found to have bilateral pneumonia. Patient's encephalopathy has improved. RN reported occasional sundowning episodes but he has been more coherent and appears to be at his baseline menta tion in the past 24 hours. She was reported by seizure. He continued to improve. This morning, he says his shortness of breath has significantly improved. He appears comfortable and is saturating well on room air. He is oriented to person and place. Anticipating clearing patient for discharge to SNF/rehab in the next 24 hours. 10/31: He continues to improve and he is at his baseline mentation. He denies any shortness of breath or chest pain. He saturating well on room air. Patient is medically cleared and fit to be discharged to [facility] however, accepting facilities are requiring a PPD testing which will require at least another 36 hours to be read. 11/01: No acute event overnight. Denies acute complaints. No acute issues. Awaiting for completion of PPD testing and acceptance at the [facility]. Reason For Visit: PNEUMONIA Physical Exam Vital Signs: Temp Pulse Resp BP Pulse Ox 97.6 F 119 H 16 121/56 L 93 11/01/18 11:45 11/01/18 11:45 11/01/18 11:45 11/01/18 11:45 11/01/18 12:00 Pulse Oximeter Continuous Start: 10/28/18 01:14 Freq: RTQ4 Status: Active Protocol: Document 11/01/18 12:00 [facility] (Rec: 11/01/18 12:17 [facility] [id number]) Pulse Oximetry Assessment Oxygen Saturation (92-100) 93 Oxygen Delivery Method Room Air Fraction of Inspired Oxygen (FIO2) 21 Equipment Usage Equipment in Use Continuous SpO2 Machine # 7 Intake & Output 10/31/18 11/01/18 11/02/18 06:59 06:59 06:59 Intake Total 650 770 Output Total 802 Balance -152 770 Weight 176 lb 2.389 oz 161 lb 13.109 oz General appearance: PRESENT: no acute distress, well-developed, well-nourished Head exam: PRESENT: atraumatic, normocephalic Eye exam: PRESENT: conjunctiva pink, EOMI, PERRLA. ABSENT: scleral icterus Ear exam: PRESENT: normal external ear exam Mouth exam: PRESENT: moist, tongue midline Neck exam: ABSENT: carotid bruit, JVD, lymphadenopathy, thyromegaly Respiratory exam: PRESENT: clear to auscultation rachna. ABSENT: rales, rhonchi, wheezes Cardiovascular exam: PRESENT: RRR. ABSENT: diastolic murmur, rubs, systolic murmur Pulses: PRESENT: normal dorsalis pedis pul GI/Abdominal exam: PRESENT: normal bowel sounds, soft. ABSENT: distended, guarding, mass, organolmegaly, rebound, tenderness Rectal exam: PRESENT: deferred Extremities exam: PRESENT: full ROM. ABSENT: calf tenderness, clubbing, pedal edema Neurological exam: PRESENT: alert, awake, oriented to person, oriented to place, oriented to time, oriented to situation, CN II-XII grossly intact. ABSENT: motor sensory deficit Results Laboratory Results: 10/31/18 06:25 10/31/18 06:25 10/27/18 10/28/18 10/28/18 21:11 03:17 03:17 Creatine Kinase 46 L CK-MB (CK-2) 1.51 Troponin I 0.428 0.421 10/28/18 10/28/18 10/28/18 08:37 08:37 14:45 Creatine Kinase 40 L 49 L CK-MB (CK-2) 1.28 Troponin I 0.398 10/28/18 14:45 Creatine Kinase CK-MB (CK-2) 1.44 Troponin I 0.353 Impressions: Head CT 10/27/18 20:26 IMPRESSION: 1. No acute intracranial findings. 2. Old left frontal lobe infarct Chest CT 10/28/18 00:00 IMPRESSION: EXTENSIVE FIBROTIC CHANGES AND PROBABLE SUPERIMPOSED PNEUMONIA. MODERATE BILATERAL PLEURAL EFFUSIONS. Chest X-Ray 10/29/18 00:00 IMPRESSION: End-stage appearance of volume loss and dense pulmonary fibrosis in both upper lobes. Trace bilateral pleural effusions. No gross alveolar edema. Findings discussed with Dr. Torres Assessment and Plan - Diagnosis (1) Acute encephalopathy Is this a current diagnosis for this admission?: Yes Plan: He does have dementia. Acute encephalopathy was likely related to his pneumonia. This is now resolved and he is now at his baseline. (2) Bilateral upper lobe community acquired pneumonia Is this a current diagnosis for this admission?: Yes Plan: Improving. Continue Rocephin and azithromycin. (3) Coronary artery disease Qualifiers: Coronary Disease-Associated Artery/Lesion type: [place] artery [place] vs. transplanted heart: [place] heart Associated angina: without angina Qualified Code(s): I25.10 - Atherosclerotic heart disease of [place] coronary artery without angina pectoris Is this a current diagnosis for this admission?: Yes Plan: Stable. Continue aspirin and statin. (4) Dementia Qualifiers: Dementia type: unspecified type Dementia behavioral disturbance: with behavioral disturbance Qualified Code(s): F03.91 - Unspecified dementia with behavioral disturbance Is this a current diagnosis for this admission?: Yes Plan: Now at baseline. (5) Diabetes mellitus type 2 in nonobese Is this a current diagnosis for this admission?: Yes Plan: Controlled. (6) Hypertension Qualifiers: Hypertension type: essential hypertension Qualified Code(s): I10 - [place] l (primary) hypertension Is this a current diagnosis for this admission?: Yes Plan: Continue metoprolol and losartan. - Time Time Spent with patient: 15-24 minutes
[2018-11-01] MEDS: CEFTRIAXONE SODIUM 1,000 MG in DEXTROSE 5%-WATER 50 ML IV SCH (22:06)
[2018-11-01] MEDS: ATORVASTATIN CALCIUM 40 MG TABLET PO SCH (22:09)
[2018-11-02] MEDS: IPRATROPIUM/ALBUTEROL 0.5-2.5 MG/3 ML AMPUL NEB SCH ×4 (02:18→20:06)
[2018-11-02] MEDS: HEPARIN SOD (PORCINE) 5,000 UNIT/ML 1 ML SYRINGE SUBCUT SCH ×3 (06:33→22:33)
[2018-11-02] MEDS: INSULIN LISPRO 100 UNIT/ML 3 ML VIAL SUBCUT SCH ×4 (07:16→23:29)
[2018-11-02] MEDS: AZITHROMYCIN 250 MG TABLET PO SCH (11:05)
[2018-11-02] MEDS: METOPROLOL TARTRATE 50 MG TABLET PO SCH (11:05)
[2018-11-02] MEDS: SERTRALINE HCL 50 MG TABLET PO SCH (11:07)
[2018-11-02] MEDS: ASPIRIN 81 MG TABLET, ENT COATED PO SCH (11:07)
[2018-11-02] MEDS: FOLIC ACID 1 MG TABLET PO SCH (11:08)
[2018-11-02] MEDS: LOSARTAN POTASSIUM 25 MG TABLET PO SCH (11:08)
[2018-11-02] MEDS: FAMOTIDINE 20 MG TABLET PO SCH ×2 (11:08→22:33)
--- NOTE | 2018-11-02 15:21 | PDOC PROGRESS REPORT ---
Subjective Progress Note for:: 11/02/18 Subjective:: 10/30: Assumed care today. Reviewed chart and course. This is an 83-year-old male who was brought in due to increasing confusion. He was admitted for acute encephalopathy and was found to have bilateral pneumonia. Patient's encephalopathy has improved. RN reported occasional sundowning episodes but he has been more coherent and appears to be at his baseline menta tion in the past 24 hours. He continued to improve. This morning, he says his shortness of breath has significantly improved. He appears comfortable and is saturating well on room air. He is oriented to person and place. Anticipating clearing patient for discharge to SNF/rehab in the next 24 hours. 10/31: He continues to improve and he is at his baseline mentation. He denies any shortness of breath or chest pain. He saturating well on room air. Patient is medically cleared and fit to be discharged to [facility] however, accepting facilities are requiring a PPD testing which will require at least another 36 hours to be read. 11/02: Event overnight. Denies acute complaints. No acute issues. PPD testing negative. Awaiting for acceptance at [facility]. Reason For Visit: PNEUMONIA Physical Exam Vital Signs: Temp Pulse Resp BP Pulse Ox 98.1 F 73 16 115/49 L 95 11/02/18 12:00 11/02/18 14:28 11/02/18 14:28 11/02/18 12:00 11/02/18 14:28 Pulse Oximeter Continuous Start: 10/28/18 01:14 Freq: RTQ4 Status: Active Protocol: Document 11/02/18 12:07 HCR (Rec: 11/02/18 13:04 HCR [id number]) Pulse Oximetry Assessment Oxygen Saturation (92-100) 96 Oxygen Flow Rate (L/min) 2 Oxygen Delivery Method Nasal Cannula Equipment Usage Equipment in Use Continuous SpO2 Machine # 7 Intake & Output 11/01/18 11/02/18 11/03/18 06:59 06:59 06:59 Intake Total 770 470 Balance 770 470 Weight 161 lb 13.109 oz 161 lb 6.054 oz General appearance: PRESENT: no acute distress, well-developed, well-nourished Head exam: PRESENT: atraumatic, normocephalic Eye exam: PRESENT: conjunctiva pink, EOMI, PERRLA. ABSENT: scleral icterus Ear exam: PRESENT: normal external ear exam Mouth exam: PRESENT: moist, tongue midline Neck exam: ABSENT: carotid bruit, JVD, lymphadenopathy, thyromegaly Respiratory exam: PRESENT: clear to auscultation rachna. ABSENT: rales, rhonchi, wheezes Cardiovascular exam: PRESENT: RRR. ABSENT: diastolic murmur, rubs, systolic murmur Pulses: PRESENT: normal dorsalis pedis pul GI/Abdominal exam: PRESENT: normal bowel sounds, soft. ABSENT: distended, guarding, mass, organolmegaly, rebound, tenderness Rectal exam: PRESENT: deferred Extremities exam: PRESENT: full ROM. ABSENT: calf tenderness, clubbing, pedal edema Neurological exam: PRESENT: alert, awake, oriented to person, CN II-XII grossly intact. ABSENT: motor sensory deficit Results Laboratory Results: 10/31/18 06:25 10/31/18 06:25 10/28/18 00:38 Blood Blood Culture - Final NO GROWTH IN 5 DAYS 10/27/18 22:40 Blood Blood Culture - Final NO GROWTH IN 5 DAYS 10/27/18 10/28/18 10/28/18 21:11 03:17 03:17 Creatine Kinase 46 L CK-MB (CK-2) 1.51 Troponin I 0.428 0.421 10/28/18 10/28/18 10/28/18 08:37 08:37 14:45 Creatine Kinase 40 L 49 L CK-MB (CK-2) 1.28 Troponin I 0.398 10/28/18 14:45 Creatine Kinase CK-MB (CK-2) 1.44 Troponin I 0.353 Impressions: Head CT 10/27/18 20:26 IMPRESSION: 1. No acute intracranial findings. 2. Old left frontal lobe infarct Chest CT 10/28/18 00:00 IMPRESSION: EXTENSIVE FIBROTIC CHANGES AND PROBABLE SUPERIMPOSED PNEUMONIA. MODERATE BILATERAL PLEURAL EFFUSIONS. Chest X-Ray 10/29/18 00:00 IMPRESSION: End-stage appearance of volume loss and dense pulmonary fibrosis in both upper lobes. Trace bilateral pleural effusions. No gross alveolar edema. Findings discussed with Dr. Torres Assessment and Plan - Diagnosis (1) Acute encephalopathy Is this a current diagnosis for this admission?: Yes Plan: He does have dementia. Acute encephalopathy was likely related to his pneumonia. This is now resolved and he is now at his baseline. (2) Bilateral upper lobe community acquired pneumonia Is this a current diagnosis for this admission?: Yes Plan: Improving. Continue Rocephin and azithromycin. (3) Coronary artery disease Qualifiers: Coronary Disease-Associated Artery/Lesion type: [place] artery [place] vs. transplanted heart: [place] heart Associated angina: without angina Qualified Code(s): I25.10 - Atherosclerotic heart disease of [place] coronary artery without angina pectoris Is this a current diagnosis for this admission?: Yes Plan: Stable. Continue aspirin and statin. (4) Dementia Qualifiers: Dementia type: unspecified type Dementia behavioral disturbance: with behavioral disturbance Qualified Code(s): F03.91 - Unspecified dementia with behavioral disturbance Is this a current diagnosis for this admission?: Yes Plan: Now at baseline. (5) Diabetes mellitus type 2 in nonobese Is this a current diagnosis for this admission?: Yes Plan: Controlled. (6) Hypertension Qualifiers: Hypertension type: essential hypertension Qualified Code(s): I10 - Essential (primary) hypertension Is this a current diagnosis for this admission?: Yes Plan: Continue metoprolol and losartan. - Time Time Spent with patient: 15-24 minutes
[2018-11-02] MEDS: ATORVASTATIN CALCIUM 40 MG TABLET PO SCH (22:33)
[2018-11-02] MEDS: CEFTRIAXONE SODIUM 1,000 MG in DEXTROSE 5%-WATER 50 ML IV SCH (22:33)
[2018-11-03] MEDS: IPRATROPIUM/ALBUTEROL 0.5-2.5 MG/3 ML AMPUL NEB SCH ×4 (01:56→19:53)
[2018-11-03] MEDS: HEPARIN SOD (PORCINE) 5,000 UNIT/ML 1 ML SYRINGE SUBCUT SCH ×3 (05:57→21:01)
[2018-11-03] MEDS: INSULIN LISPRO 100 UNIT/ML 3 ML VIAL SUBCUT SCH ×4 (07:31→21:20)
[2018-11-03] MEDS: AZITHROMYCIN 250 MG TABLET PO SCH (09:53)
[2018-11-03] MEDS: METOPROLOL TARTRATE 50 MG TABLET PO SCH (09:54)
[2018-11-03] MEDS: FAMOTIDINE 20 MG TABLET PO SCH ×2 (09:54→21:03)
[2018-11-03] MEDS: FOLIC ACID 1 MG TABLET PO SCH (09:54)
[2018-11-03] MEDS: ASPIRIN 81 MG TABLET, ENT COATED PO SCH (09:54)
[2018-11-03] MEDS: SERTRALINE HCL 50 MG TABLET PO SCH (09:54)
[2018-11-03] MEDS: LOSARTAN POTASSIUM 25 MG TABLET PO SCH (09:54)
--- NOTE | 2018-11-03 11:25 | RADIOLOGY REPORT (SQ) ---
EXAM DESCRIPTION: CHEST SINGLE VIEW COMPLETED DATE/TIME: 11/03/2018 10:42 am REASON FOR STUDY: low O2 sats COMPARISON: AP chest 10/29/2018, 10/27/2018 CT chest 10/28/2018 EXAM PARAMETERS: NUMBER OF VIEWS: One view. TECHNIQUE: Single frontal radiographic view of the chest acquired. RADIATION DOSE: NA LIMITATIONS: None. FINDINGS: LUNGS AND PLEURA: Stable marked chronic scarring and volume loss in the bilateral upper lo bes. No acute infiltrates. Trace left pleural fluid. No pneumothorax. MEDIASTINUM AND HILAR STRUCTURES: No masses. Contour normal. 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 BONES: No acute findings. HARDWARE: None in the chest. OTHER: No other significant finding. IMPRESSION: Stable bilateral upper lobe advanced parenchymal scarring. Trace left pleural fluid, stable. TECHNICAL DOCUMENTATION: JOB ID: [id number] [employer]- All Rights Reserved Reading location - IP/workstation name: [email or web address]
--- NOTE | 2018-11-03 13:41 | PDOC PROGRESS REPORT ---
Subjective Progress Note for:: 11/03/18 Subjective:: 10/30: Assumed care today. Reviewed chart and course. This is an 83-year-old male who was brought in due to increasing confusion. He was admitted for acute encephalopathy and was found to have bilateral pneumonia. Patient's encephalopathy has improved. RN reported occasional sundowning episodes but he has been more coherent and appears to be at his baseline menta tion in the past 24 hours. He continued to improve. This morning, he says his shortness of breath has significantly improved. He appears comfortable and is saturating well on room air. He is oriented to person and place. Anticipating clearing patient for discharge to SNF/rehab in the next 24 hours. 10/31: He continues to improve and he is at his baseline mentation. He denies any shortness of breath or chest pain. He saturating well on room air. Patient is medically cleared and fit to be discharged to [facility] however, accepting facilities are requiring a PPD testing which will require at least another 36 hours to be read. 11/02: Denies acute complaints. No acute issues. PPD testing negative. He is saturating well on 2 L of nasal cannula but does go down to the high 80s off nasal cannula likely related to his severe upper lobe fibrosis noted on chest CT. Awaiting for acceptance at [facility]. 11/03: No acute event overnight. He is at his baseline. Awaiting for [facility] placement. He is going to [place]. Reason For Visit: PNEUMONIA Physical Exam Vital Signs: Temp Pulse Resp BP Pulse Ox 97.6 F 76 16 104/83 94 11/03/18 07:44 11/03/18 07:54 11/03/18 07:54 11/03/18 07:44 11/03/18 13:11 Pulse Oximeter Continuous Start: 10/28/18 01:14 Freq: RTQ4 Status: Active Protocol: Document 11/03/18 13:11 BOR (Rec: 11/03/18 13:11 BOR [id number]) Pulse Oximetry Assessment Oxygen Saturation (92-100) 94 Oxygen Flow Rate (L/min) 2 Oxygen Delivery Method Nasal Cannula Fraction of Inspired Oxygen (FIO2) 28 Equipment Usage Equipment in Use Continuous SpO2 Machine # 7 Intake & Output 11/02/18 11/03/18 11/04/18 06:59 06:59 06:59 Intake Total 470 390 Balance 470 390 Weight 161 lb 6.054 oz 161 lb 9.581 oz General appearance: PRESENT: no acute distress, well-developed, well-nourished Head exam: PRESENT: atraumatic, normocephalic Eye exam: PRESENT: conjunctiva pink, EOMI, PERRLA. ABSENT: scleral icterus Ear exam: PRESENT: normal external ear exam Mouth exam: PRESENT: moist, tongue midline Neck exam: ABSENT: carotid bruit, JVD, lymphadenopathy, thyromegaly Respiratory exam: PRESENT: rhonchi. ABSENT: rales, wheezes Cardiovascular exam: PRESENT: RRR. ABSENT: diastolic murmur, rubs, systolic murmur Pulses: PRESENT: normal dorsalis pedis pul GI/Abdominal exam: PRESENT: normal bowel sounds, soft. ABSENT: distended, guarding, mass, organolmegaly, rebound, tenderness Rectal exam: PRESENT: deferred Extremities exam: PRESENT: full ROM. ABSENT: calf tenderness, clubbing, pedal edema Neurological exam: PRESENT: alert, awake, oriented to person, CN II-XII grossly intact. ABSENT: motor sensory deficit Results Laboratory Results: 10/31/18 06:25 10/31/18 06:25 10/27/18 10/28/18 10/28/18 21:11 03:17 03:17 Creatine Kinase 46 L CK-MB (CK-2) 1.51 Troponin I 0.428 0.421 10/28/18 10/28/18 10/28/18 08:37 08:37 14:45 Creatine Kinase 40 L 49 L CK-MB (CK-2) 1.28 Troponin I 0.398 10/28/18 14:45 Creatine Kinase CK-MB (CK-2) 1.44 Troponin I 0.353 Impressions: Head CT 10/27/18 20:26 IMPRESSION: 1. No acute intracranial findings. 2. Old left frontal lobe infarct Chest CT 10/28/18 00:00 IMPRESSION: EXTENSIVE FIBROTIC CHANGES AND PROBABLE SUPERIMPOSED PNEUMONIA. MODERATE BILATERAL PLEURAL EFFUSIONS. Chest X-Ray 11/03/18 00:00 IMPRESSION: Stable bilateral upper lobe advanced parenchymal scarring. Trace left pleural fluid, stable. Assessment and Plan - Diagnosis (1) Acute encephalopathy Is this a current diagnosis for this admission?: Yes Plan: He does have dementia. Acute encephalopathy was likely related to his pneumonia. This is now resolved and he is now at his baseline. (2) Bilateral upper lobe community acquired pneumonia Is this a current diagnosis for this admission?: Yes Plan: Improving. Continue Rocephin and azithromycin. (3) Coronary artery disease Qualifiers: Coronary Disease-Associated Artery/Lesion type: [place] artery [place] vs. transplanted heart: [place] heart Associated angina: without angina Qualified Code(s): I25.10 - Atherosclerotic heart disease of [place] coronary artery without angina pectoris Is this a current diagnosis for this admission?: Yes Plan: Stable. Continue aspirin and statin. (4) Dementia Qualifiers: Dementia type: unspecified type Dementia behavioral disturbance: with behavioral disturbance Qualified Code(s): F03.91 - Unspecified dementia with behavioral disturbance Is this a current diagnosis for this admission?: Yes Plan: Now at baseline. (5) Diabetes mellitus type 2 in nonobese Is this a current diagnosis for this admission?: Yes Plan: Controlled. (6) Hypertension Qualifiers: Hypertension type: essential hypertension Qualified Code(s): I10 - Essential (primary) hypertension Is this a current diagnosis for this admission?: Yes Plan: Continue metoprolol and losartan. (7) Pulmonary fibrosis Is this a current diagnosis for this admission?: Yes Plan: He is saturating well on 2 L of nasal cannula but does go down to the high 80s off nasal cannula likely related to his severe upper lobe fibrosis noted on chest CT. - Time Time Spent with patient: 15-24 minutes
[2018-11-03] MEDS: CEFTRIAXONE SODIUM 1,000 MG in DEXTROSE 5%-WATER 50 ML IV SCH (21:03)
[2018-11-03] MEDS: ATORVASTATIN CALCIUM 40 MG TABLET PO SCH (21:03)
[2018-11-04] MEDS: IPRATROPIUM/ALBUTEROL 0.5-2.5 MG/3 ML AMPUL NEB SCH ×4 (02:23→19:48)
[2018-11-04] MEDS: HEPARIN SOD (PORCINE) 5,000 UNIT/ML 1 ML SYRINGE SUBCUT SCH ×3 (05:23→22:01)
[2018-11-04] MEDS: INSULIN LISPRO 100 UNIT/ML 3 ML VIAL SUBCUT SCH ×4 (09:02→22:02)
[2018-11-04] MEDS: ASPIRIN 81 MG TABLET, ENT COATED PO SCH (10:42)
[2018-11-04] MEDS: LOSARTAN POTASSIUM 25 MG TABLET PO SCH (10:42)
[2018-11-04] MEDS: SERTRALINE HCL 50 MG TABLET PO SCH (10:42)
[2018-11-04] MEDS: FAMOTIDINE 20 MG TABLET PO SCH ×2 (10:42→22:01)
[2018-11-04] MEDS: FOLIC ACID 1 MG TABLET PO SCH (10:43)
[2018-11-04] MEDS: METOPROLOL TARTRATE 50 MG TABLET PO SCH (10:43)
--- NOTE | 2018-11-04 15:52 | PDOC PROGRESS REPORT ---
Subjective Progress Note for:: 11/04/18 Subjective:: 10/30: Assumed care today. Reviewed chart and course. This is an 83-year-old male who was brought in due to increasing confusion. He was admitted for acute encephalopathy and was found to have bilateral pneumonia. Patient's encephalopathy has improved. RN reported occasional sundowning episodes but he has been more coherent and appears to be at his baseline menta tion in the past 24 hours. He continued to improve. This morning, he says his shortness of breath has significantly improved. He appears comfortable and is saturating well on room air. He is oriented to person and place. Anticipating clearing patient for discharge to SNF/rehab in the next 24 hours. 10/31: He continues to improve and he is at his baseline mentation. He denies any shortness of breath or chest pain. He saturating well on room air. Patient is medically cleared and fit to be [facility] however, accepting facilities are requiring a PPD testing which will require at least another 36 hours to be read. 11/02: Denies acute complaints. No acute issues. PPD testing negative. He is saturating well on 2 L of nasal cannula but does go down to the high 80s off nasal cannula likely related to his severe upper lobe fibrosis noted on chest CT. Awaiting for acceptance at [facility]. 11/04: He is at his baseline. Denies acute complaints. [facility]waiting for [facility]. He is going to [place]. Reason For Visit: PNEUMONIA Physical Exam Vital Signs: Temp Pulse Resp BP Pulse Ox 98.3 F 67 20 110/52 L 95 11/04/18 11:38 11/04/18 13:52 11/04/18 13:52 11/04/18 11:38 11/04/18 13:52 Pulse Oximeter Continuous Start: 10/28/18 01:14 Freq: RTQ4 Status: Active Protocol: Document 11/04/18 12:00 NSM (Rec: 11/04/18 13:52 NSM [id number]) Pulse Oximetry Assessment Oxygen Saturation (92-100) 95 Oxygen Flow Rate (L/min) 3 Oxygen Delivery Method Nasal Cannula Fraction of Inspired Oxygen (FIO2) 32 Equipment Usage Equipment Standby Continuous SpO2 Machine # N7 Additional RT Notes Other pt will not leave probe on finger, SPO2 checked manually, will continue to monitor. Intake & Output 0711/04/18 11/05/18 06:59 06:59 06:59 Intake Total 390 406 120 Balance 390 406 120 Weight 161 lb 9.581 oz 161 lb 9.581 oz General appearance: PRESENT: no acute distress, well-developed, well-nourished Head exam: PRESENT: atraumatic, normocephalic Eye exam: PRESENT: conjunctiva pink, EOMI, PERRLA. ABSENT: scleral icterus Ear exam: PRESENT: normal external ear exam Mouth exam: PRESENT: moist, tongue midline Neck exam: ABSENT: carotid bruit, JVD, lymphadenopathy, thyromegaly Respiratory exam: PRESENT: clear to auscultation rachna. ABSENT: rales, rhonchi, wheezes Cardiovascular exam: PRESENT: RRR. ABSENT: diastolic murmur, rubs, systolic murmur Pulses: PRESENT: normal dorsalis pedis pul GI/Abdominal exam: PRESENT: normal bowel sounds, soft. ABSENT: distended, guarding, mass, organolmegaly, rebound, tenderness Rectal exam: PRESENT: deferred Extremities exam: PRESENT: full ROM. ABSENT: calf tenderness, clubbing, pedal edema Neurological exam: PRESENT: alert, awake, oriented to person, oriented to place, CN II-XII grossly intact. ABSENT: motor sensory deficit Results Laboratory Results: 10/31/18 06:25 10/31/18 06:25 10/27/18 10/28/18 10/28/18 21:11 03:17 03:17 Creatine Kinase 46 L CK-MB (CK-2) 1.51 Troponin I 0.428 0.421 10/28/18 10/28/18 10/28/18 08:37 08:37 14:45 Creatine Kinase 40 L 49 L CK-MB (CK-2) 1.28 Troponin I 0.398 10/28/18 14:45 Creatine Kinase CK-MB (CK-2) 1.44 Troponin I 0.353 Impressions: Head CT 10/27/18 20:26 IMPRESSION: 1. No acute intracranial findings. 2. Old left frontal lobe infarct Chest CT 10/28/18 00:00 IMPRESSION: EXTENSIVE FIBROTIC CHANGES AND PROBABLE SUPERIMPOSED PNEUMONIA. MODERATE BILATERAL PLEURAL EFFUSIONS. Chest X-Ray 11/03/18 00:00 IMPRESSION: Stable bilateral upper lobe advanced parenchymal scarring. Trace left pleural fluid, stable. Assessment and Plan - Diagnosis (1) Acute encephalopathy Is this a current diagnosis for this admission?: Yes Plan: He does have dementia. Acute encephalopathy was likely related to his pneumonia. This is now resolved and he is now at his baseline. (2) Bilateral upper lobe community acquired pneumonia Is this a current diagnosis for this admission?: Yes Plan: Improving. On Rocephin and azithromycin. 11/04: He has completed 7 days of IV antibiotics. DC antibiotics today. (3) Coronary artery disease Qualifiers: Coronary Disease-Associated Artery/Lesion type: [place] artery [place] vs. transplanted heart: [place] heart Associated angina: without angina Qualified Code(s): I25.10 - Atherosclerotic heart disease of [place] coronary artery without angina pectoris Is this a current diagnosis for this admission?: Yes Plan: Stable. Continue aspirin and statin. (4) Dementia Qualifiers: Dementia type: unspecified type Dementia behavioral disturbance: with behavioral disturbance Qualified Code(s): F03.91 - Unspecified dementia with behavioral disturbance Is this a current diagnosis for this admission?: Yes Plan: Now at baseline. (5) Diabetes mellitus type 2 in nonobese Is this a current diagnosis for this admission?: Yes Plan: Controlled. (6) Hypertension Qualifiers: Hypertension type: essential hypertension Qualified Code(s): I10 - Essential (primary) hypertension Is this a current diagnosis for this admission?: Yes Plan: Continue metoprolol and losartan. (7) Pulmonary fibrosis Is this a current diagnosis for this admission?: Yes Plan: He is saturating well on 2 L of nasal cannula but does go down to the high 80s off nasal cannula likely related to his severe upper lobe fibrosis noted on chest CT. - Time Time Spent with patient: 15-24 minutes
[2018-11-04] MEDS: ATORVASTATIN CALCIUM 40 MG TABLET PO SCH (22:01)
[2018-11-05] MEDS: IPRATROPIUM/ALBUTEROL 0.5-2.5 MG/3 ML AMPUL NEB SCH ×3 (01:46→14:25)
[2018-11-05] MEDS: HEPARIN SOD (PORCINE) 5,000 UNIT/ML 1 ML SYRINGE SUBCUT SCH ×2 (06:38→14:00)
[2018-11-05] MEDS: INSULIN LISPRO 100 UNIT/ML 3 ML VIAL SUBCUT SCH ×2 (07:41→11:50)
--- NOTE | 2018-11-05 11:35 | PDOC TRANSFER SUMMARY ---
General - Admit/Disc Date/PCP Admission Date/Primary Care Provider: 10/28/18 00:46 Discharge Date: 11/05/18 - Discharge Diagnosis (1) Acute encephalopathy Is this a current diagnosis for this admission?: Yes (2) Bilateral upper lobe community acquired pneumonia Is this a current diagnosis for this admission?: Yes (3) Coronary artery disease Is this a current diagnosis for this admission?: Yes (4) Dementia Is this a current diagnosis for this admission?: Yes (5) Diabetes mellitus type 2 in nonobese Is this a current diagnosis for this admission?: Yes (6) Hypertension Is this a current diagnosis for this admission?: Yes (7) Pulmonary fibrosis Is this a current diagnosis for this admission?: Yes - Additional Information Resuscitation Status: Do Not Resuscitate Home Medications: Aspirin [Adult Low Dose Aspirin EC] 81 mg PO DAILY 10/28/18 Ergocalciferol (Vitamin D2) [Drisdol 50,000 unit (1.25MG) Capsule] 50,000 unit PO WE 10/28/18 Folic Acid [Folvite 1 mg Tablet] 1 mg PO DAILY 10/28/18 Losartan Potassium [Cozaar 25 mg Tablet] 25 mg PO DAILY 10/28/18 Metoprolol Tartrate [Lopressor 50 mg Tablet] 50 mg PO DAILY 10/28/18 Rosuvastatin Calcium [Crestor 20 mg Tablet] 20 mg PO DAILY 10/28/18 Sertraline HCl [Zoloft 50 mg Tablet] 50 mg PO DAILY 10/28/18 History of Present Illness Admission Date/PCP: 10/28/18 00:46 History of Present Illness: Admitting hospitalist's H&P: CONNER SMITH is a 83 year old male who presented to the emergency room via EMS from a local [facility]dc due to increased confusion and combativeness. Patient has severe dementia and is unable to contribute any meaningful information to his history. EMS reports that the fdc staff felt that the patient had a significant change from his baseline dementia with an increase in confusion and they also noted that he had become physically combative when they would try to assist him or redirect him. In the emergency room he was found to be mildly hypotensive and further evaluation revealed bilateral pneumonia with an interstitial infiltrate in the right upper lobe and an alveolar infiltrate in the left upper lobe which are presumed to be acute since no comparison films are available. His white blood count was noted to be 13,400. Hospital Course Hospital Course: This is an 83-year-old male who was brought in due to increasing confusion. He was admitted for acute encephalopathy and was found to have bilateral pneumonia. He was started on IV antibiotics. He did significantly improved and returned to his baseline mentation. He did have sundowning episodes during this course from his dementia. Chest CT also showed upper lobe fibrosis. His course was prolonged only due to wait for facility placement. He completed 7 days of IV antibiotics. He will be discharged to [facility] Physical Exam Vital Signs: Temp Pulse Resp BP Pulse Ox 98.5 F 86 20 133/90 H 93 11/05/18 07:21 11/05/18 08:03 11/05/18 08:03 11/05/18 07:21 11/05/18 08:03 Pulse Oximeter Continuous Start: 10/28/18 01:14 Freq: RTQ4 Status: Active Protocol: Document 11/05/18 08:03 [facility] (Rec: 11/05/18 08:20 [facility] [id number]) Pulse Oximetry Assessment Oxygen Saturation (92-100) 93 Oxygen Flow Rate (L/min) 3 Oxygen Delivery Method Nasal Cannula Fraction of Inspired Oxygen (FIO2) 32 Equipment Usage Equipment in Use Continuous Pulse Oximeter 24 Hour Charge Charge Now Continuous SpO2 Machine # N 7 Intake & Output 11/04/18 11/05/18 11/06/18 06:59 06:59 06:59 Intake Total 406 1080 Balance 406 1080 Weight 161 lb 9.581 oz 161 lb 9.581 oz General appearance: PRESENT: no acute distress, well-developed, well-nourished Head exam: PRESENT: atraumatic, normocephalic Eye exam: PRESENT: conjunctiva pink, EOMI, PERRLA. ABSENT: scleral icterus Ear exam: PRESENT: normal external ear exam Mouth exam: PRESENT: moist, tongue midline Neck exam: ABSENT: carotid bruit, JVD, lymphadenopathy, thyromegaly Respiratory exam: PRESENT: rhonchi. ABSENT: rales, wheezes Cardiovascular exam: PRESENT: RRR. ABSENT: diastolic murmur, rubs, systolic murmur Pulses: PRESENT: normal dorsalis pedis pul GI/Abdominal exam: PRESENT: normal bowel sounds, soft. ABSENT: distended, guarding, mass, organolmegaly, rebound, tenderness Rectal exam: PRESENT: deferred Neurological exam: PRESENT: alert, awake, oriented to person, CN II-XII grossly intact. ABSENT: motor sensory deficit Results Laboratory Results: 10/31/18 06:25 10/31/18 06:25 10/27/18 10/28/18 10/28/18 21:11 03:17 03:17 Creatine Kinase 46 L CK-MB (CK-2) 1.51 Troponin I 0.428 0.421 10/28/18 10/28/18 10/28/18 08:37 08:37 14:45 Creatine Kinase 40 L 49 L CK-MB (CK-2) 1.28 Troponin I 0.398 10/28/18 14:45 Creatine Kinase CK-MB (CK-2) 1.44 Troponin I 0.353 Impressions: Head CT 10/27/18 20:26 IMPRESSION: 1. No acute intracranial findings. 2. Old left frontal lobe infarct Chest CT 10/28/18 00:00 IMPRESSION: EXTENSIVE FIBROTIC CHANGES AND PROBABLE SUPERIMPOSED PNEUMONIA. MODERATE BILATERAL PLEURAL EFFUSIONS. Chest X-Ray 11/03/18 00:00 IMPRESSION: Stable bilateral upper lobe advanced parenchymal scarring. Trace left pleural fluid, stable. Qualifiers - * PATIENT BEING DISCHARGED WITH ANY OF THE FOLLOWING DIAGNOSIS: No Acute Heart Failure - Is this a Heart Failure Patient?: No LVEF < 40%?: No- if no continue to question #3 3. Anticoagulant therapy for permanect/persistent/paraoxysmal Afib or Aflutter: N/A
[2018-11-05] MEDS: FOLIC ACID 1 MG TABLET PO SCH (11:44)
[2018-11-05] MEDS: FAMOTIDINE 20 MG TABLET PO SCH (11:44)
[2018-11-05] MEDS: LOSARTAN POTASSIUM 25 MG TABLET PO SCH (11:44)
[2018-11-05] MEDS: SERTRALINE HCL 50 MG TABLET PO SCH (11:44)
[2018-11-05] MEDS: METOPROLOL TARTRATE 50 MG TABLET PO SCH (11:45)
[2018-11-05] MEDS: ASPIRIN 81 MG TABLET, ENT COATED PO SCH (11:45)
[2018-11-05 12:04] VITALS: BP 142/74
[2018-11-05 12:10] LABS: ABSOLUTE BASOPHILS # (AUTO) 0.1 10^3/uL (0.0-0.2); ABSOLUTE EOSINOPHILS # (AUTO) 0.1 10^3/uL (0.0-0.6); ABSOLUTE LYMPHOCYTES (AUTO) 0.5 10^3/uL (0.5-4.7); ABSOLUTE MONOCYTES (AUTO) 0.6 10^3/uL (0.1-1.4); ABSOLUTE NEUT (AUTO) 6.9 10^3/uL (1.7-8.2); BASOPHILS % (AUTO) 0.6 % (0-2); EOSINOPHILS % (AUTO) 1.1 % (0-6); HEMATOCRIT 39.2 % (37.9-51.0); HEMOGLOBIN 13.1 g/dL (13.5-17.0); LYMPHOCYTES % (AUTO) 6.5 % (13-45); MEAN CORPUSCULAR HEMOGLOBIN 28.9 pg (27.0-33.4); MEAN CORPUSCULAR HGB CONC 33.5 g/dL (32.0-36.0); MEAN CORPUSCULAR VOLUME 86 fl (80-97); MONOCYTES % (AUTO) 7.7 % (3-13); PLATELET COUNT 283 10^3/uL (150-450); RED BLOOD COUNT 4.54 10^6/uL (4.35-5.55); SEGMENTED NEUTROPHILS % (AUTO) 84.1 % (42-78); TOTAL CELLS COUNTED % (AUTO) 100 %; WHITE BLOOD COUNT 8.2 10^3/uL (4.0-10.5)
[2018-11-05 12:45] LABS: ANION GAP 9 (5-19); BLOOD UREA NITROGEN 13 mg/dL (7-20); CALCIUM 8.7 mg/dL (8.4-10.2); CARBON DIOXIDE 24 mmol/L (22-30); CHLORIDE 104 mmol/L (98-107); GLUCOSE 127 mg/dL (75-110); POTASSIUM 4.2 mmol/L (3.6-5.0); SODIUM 136.5 mmol/L (137-145)
== END 2018-11-05 15:29 | DRG 194 ==
LOC: ER 19:47 → EH 10-28 00:46 → 3W 10-28 02:10 → 4W 10-31 22:50 → 5 11-05 09:17
PROVIDERS: ADMIT Emergency Medicine; ATTEND Emergency Medicine
DX: J18.9 Pneumonia, unspecified organism (principal); G93.40 Encephalopathy, unspecified; F05 Delirium due to known physiological condition; I95.9 Hypotension, unspecified; I25.10 Atherosclerotic heart disease of native coronary artery without angina pectoris; F03.90 Unspecified dementia, unspecified severity, without behavioral disturbance, psychotic disturbance, mood disturbance, and anxiety; I10 Essential (primary) hypertension; E78.5 Hyperlipidemia, unspecified; E11.9 Type 2 diabetes mellitus without complications; J84.10 Pulmonary fibrosis, unspecified; Z66 Do not resuscitate; Z95.5 Presence of coronary angioplasty implant and graft; Z82.49 Family history of ischemic heart disease and other diseases of the circulatory system; Z79.82 Long term (current) use of aspirin; Z79.899 Other long term (current) drug therapy
CPT/HCPCS: 36415; 70450; 71045; 71250; 80048; 80053; 80061; 81001; 82550; 82553; 82962; 83036; 83735; 84439; 84443; 84481; 84484; 85025; 85027; 87040; 93005; 93010; 94640; 94762; 96360; 99285; J0696; J1644; J1650; J1956; J3490; J7040; J7060; J7614; J7620